=== PATIENT | male | born 1950 | race Caucasian/White ===

== ENCOUNTER 2019-12-21 08:55 | Outpatient (REF) | payer MEDICARE, MEDICAID, SELFPAY ==
--- NOTE | 2019-12-21 11:01 | MHC.AU.P13 ---
Hearing Instrument Fitting- Adult- Binaural Date of Visit: 12/21/19 Hearing Instruments Dispensed: Right Ear: Machine Bobbin Winder: Phonak Model: Audeo M70-R Serial Number: [id number] Warranty: 03/12/2023 Service Plan: 03/12/2023 Battery Size: Rechargeable Color: Sand Beige Art Teacher: 1M Type of Dome: Small Open Type of Wax Guard: CeruDisk Left Ear: Machine Bobbin Winder: Phonak Model: Audeo M70-R Serial Number: [id number] Warranty: 03/12/2023 Service Plan: 03/12/2023 Battery Size: Rechargeable Color: Sand Beige Art Teacher: 1M Type of Dome: Small Open Type of Wax Guard: CeruDisk Accessories/Assistive Technology: Summary of Fitting: Feedback manger was run. Verifit performed and levels adjusted to better reach targets. Target gain initially 100%. Patient felt his own voice was uncomfortably loud. Lowered gain to 90%. Occlusion compensation is medium. Patient reported improvement, though there was still a slight echo. Counseled that it is normal for a first time hearing aid user to perceive a slight echo or to find their voice louder than normal. With continued use, this perception should improve. Hearing aid care and use were discussed and practiced. Patient did not have his phone with him. Discussed how to pair to the phone, if he's interested, and demonstrated with his 's phone (did not actually pair instruments to his 's phone). Recommendations: Recommendations: A hearing instrument follow-up was scheduled. Please call our clinic with any questions or concerns. Diagnosis Code(s): Primary Diagnosis: H90.3 Bilateral Sensorineural Hearing Loss Services Performed: Hearing Instrument Services: BTE-Binaural- Level 3 Rechargable Add-On Hearing Aid Dispensing: Binaural Dispensing Fee Signature: Student/Clinical Fellow: No I have reviewed/agreed with student/fellow documentation: N/A Provider: Karl Castro CCC-A
== END 2019-12-21 08:56 | disposition home or self-care (01) ==
LOC: HO.HAP 08:55
PROVIDERS: Visit Provider Internal Medicine
DX: Z46.1 Encounter for fitting and adjustment of hearing aid (principal)
CPT/HCPCS: 92700; V5160; V5261

== ENCOUNTER 2020-01-11 07:53 | Outpatient (REF) | payer MEDICARE, MEDICAID, SELFPAY | END 2020-01-11 07:54 | disposition home or self-care (01) | LOC: HO.HAP 07:53 | PROVIDERS: PCP Internal Medicine; Referring Provider Internal Medicine; Visit Provider Internal Medicine | DX: Z46.1 Encounter for fitting and adjustment of hearing aid (principal) | CPT/HCPCS: 92700 ==

== ENCOUNTER 2021-01-24 08:41 | Outpatient (REF) | payer MEDICARE, MEDICAID, SELFPAY ==
--- NOTE | 2021-01-24 10:38 | MHC.AU.AHA ---
Adult Audiological Evaluation Date of Visit: 01/24/21 Reason for Appointment: History of hearing loss. Patient arrives today to determine if there has been a change in hearing. Since his last evaluation, patient experienced a significant flare of his Multiple Sclerosis, in which he was unable to use his legs. He required a stay in rehab, and continues to receive outpatient support. He is now able to walk with a cane. His right side is more heavily impacted by the MS. Previous Hearing Test Results: Performed at [facility] on 11/22/2019- Borderline/mild sloping to moderate sensorineural hearing loss bilaterally Ear History: Ear Deformity: None Reported Recent Ear Drainage: None Reported Recent Ear Pain: None Reported Family History of Hearing Loss?: Yes: Father Recent Ear Infections: None Reported Ear Infections in Childhood: None Reported History of Ear Wax Buildup: None Reported Previous Ear Surgery: None Reported Bothersome Tinnitus/Ringing/Noises in Ears: None Reported Ear used on the phone: Left Ear Blocked/Full Sensation in Ear(s): None Reported 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: No Medical History: Medical History: Multiple Sclerosis Hearing Instrument History- Right Ear: Tilt Tray Driver: Xplornet Model: canvs.coeo M70-R Serial Number: [id number] Battery Size: Rechargeable Repair Warranty: 03/12/2023 Loss and Damage Warranty: 03/12/2023 Service Plan: 03/12/2023 Dispensed By: [facility] Date of Fittin12/21/2019 Hearing Instrument History- Left Ear: Tilt Tray Driver: iMemoriesak Model: canvs.coeo M70-R Serial Number: [id number] Battery Size: Rechargeable Warranty: 03/12/2023 Loss and Damage Warranty: 03/12/2023 Service Plan: 03/12/2023 Dispensed By: [facility] Date of Fittin12/21/2019 Otoscopy: Right Ear: Unremarkable Left Ear: Unremarkable Tympanometry: Tympanometry performed due to: To assess integrity of the middle ear system Right Ear: Normal Middle Ear System (Type A) Left Ear: Normal Middle Ear System (Type A) Hearing Evaluation: Transducer(s) Used: Insert Earphones Method: Conventional Audiometry Stimuli Used: Pure Tones Right Ear: Description of Hearing: Borderline/mild to moderate sensorineural hearing loss Left Ear: Description of Hearing: Borderline/mild to moderate sensorineural hearing loss Speech Recognition Threshold (SRT): Method Used: Recorded Lists Stimuli Used: Spondee Words Right Ear: 30 dBHL Left Ear: 30 dBHL Word Discrimination: Method: Recorded Lists Word Lists Used: W-22 Right Ear: 96% at 70 dBHL Left Ear: 100% at 70 dBHL Most Comfortable Level (MCL): Right Ear: 70 dBHL Left Ear: 70 dBHL QuickSIN: Unaided (Binaurally at 70 dBHL): 1 dB SNR Loss, Aided (Soundfield at 45 dBHL): 0 dB SNR Loss Comparison: Compared to the most recent evaluation: Hearing is stable. Recommendations: Audiological re-evaluation in one year. See Hearing Aid Follow-Up note for more information. Diagnosis: Primary Diagnosis: H90.3 Bilateral Sensorineural Hearing Loss Signature: Provider: Karl Castro, CCC-A
--- NOTE | 2021-01-24 10:40 | MHC.AU.HFU ---
Hearing Instrument Follow-Up- Binaural Date of Visit: 01/24/21 Right Ear: Lock Master: Phonak Model: Audeo M70-R Serial Number: [id number] Repair Warranty: 03/12/2023 Loss and Damage Warranty: 03/12/2023 Service Plan: 03/12/2023 Battery Size: Rechargeable Color: Sand Beige Computer Numeric Control Setter: 1M Type of Dome: Medium Open Type of Wax Guard: CeruDisk Dispensed By: [facility] Date of Fittin12/21/2019 Left Ear: Lock Master: Phonak Model: Audeo M70-R Serial Number: [id number] Repair Warranty: 03/12/2023 Loss and Damage Warranty: 03/12/2023 Service Plan: 03/12/2023 Battery Size: Rechargeable Color: Sand Beige Computer Numeric Control Setter: 1M Type of Dome: Medium Open Type of Wax Guard: CeruDisk Dispensed By: [facility] Date of Fittin12/21/2019 Follow-Up Summary: Patient was seen for audiological evaluation (see separate report for details). Patient reports that overall the hearing aids have been great. Target software shows average of 13.5 hours of use each day. He does not feel any adjustments are needed to the hearing aid programming. No change was noted in the hearing today. Patient reports that he has been trying to use the [employer] kate, but it is not detecting the hearing aids. Upon trying to connect the hearing aids to the computer to check for software updates, it was noted that the buttons on both instruments were difficult to push, and had little spring to them. The right side would not turn off/on manually, and the left only did so after numerous attempts. They were placed in a stock etl lead to turn them off/on and it was noted that the light on the right hearing aid was not turning on. Patient reports that at home he has noticed that the light goes on, but it is very dim. Hearing aids were inspected. Microphones are clear. Wax guards and domes replaced. The hearing aids are still amplifying as expected. The hearing aids will be sent to [facility] [employer] for repair under warranty. The patient was given a loaner set of Networks in Motioneo M Trial 312T instruments ([id number], [id number]). When the repaired hearing aids come back in, we can help the patient re-pair them to his phone and kate. Recommendations: Patient will be contacted when materials have arrived. Patient's is also interested in having her hearing tested. She will be asking her PCP for an order. Ideally, when the patient's hearing aids arrive, they would like to have an appointment to picker box operator the hearing aids and for her audio on the same day. Diagnosis Code(s): Primary Diagnosis: H90.3 Bilateral Sensorineural Hearing Loss Signature: Provider: Karl Castro, CCC-A
== END 2021-01-24 08:42 | disposition home or self-care (01) ==
LOC: HO.SH 08:41
PROVIDERS: Visit Provider Internal Medicine
DX: H90.3 Sensorineural hearing loss, bilateral (principal)
CPT/HCPCS: 92557; 92567; 92593

== ENCOUNTER 2021-02-14 08:10 | Outpatient (REF) | payer MEDICARE, MEDICAID, SELFPAY | END 2021-02-14 08:11 | disposition home or self-care (01) | LOC: HO.HAP 08:10 | PROVIDERS: Visit Provider Internal Medicine | DX: Z13.89 Encounter for screening for other disorder (principal) ==

== ENCOUNTER 2021-03-14 07:53 | Outpatient (REF) | payer MEDICARE, MEDICAID, SELFPAY ==
--- NOTE | 2021-03-14 08:44 | MHC.AU.HFU ---
Hearing Instrument Follow-Up- Binaural Date of Visit: 03/14/21 Right Ear: Complex Care Nurse: Phonak Model: Audeo M70-R Serial Number: [id number] Repair Warranty: 03/12/2023 Loss and Damage Warranty: 03/12/2023 Service Plan: 03/12/2023 Battery Size: Rechargeable Color: Sand Beige Rn Private Duty: 1M Type of Dome: Medium Open Type of Wax Guard: CeruDisk Dispensed By: [facility] Date of Fittin12/21/2019 Left Ear: Complex Care Nurse: Phonak Model: Audeo M70-R Serial Number: [id number] Repair Warranty: 03/12/2023 Loss and Damage Warranty: 03/12/2023 Service Plan: 03/12/2023 Battery Size: Rechargeable Color: Sand Beige Rn Private Duty: 1M Type of Dome: Medium Open Type of Wax Guard: CeruDisk Dispensed By: [facility] Date of Fittin12/21/2019 Follow-Up Summary: Patient had previously called to say his hearing aids were no longer connecting to his phone. His reports that she tried to pair the hearing aids to the TV sound bar, and now they do not seem to work for any of the previously paired devices. Patient brought the hearing aids in today. In [employer], all pairings were deleted from the hearing aids. Was able to pair the hearing aids to the phone, and was able to connect the left hearing aid in the kate. The right hearing aid would not connect in the kate. Patient also reports that the right side has been intermittent in general, with the sound cutting out a few times a day. The right hearing aid was sent to [employer] for repair under warranty. Patient was provided a loaner (Armetheon [id number] #[id number]) with a size 1M junior engineer. A replacement 1M junior engineer was requested from [employer] for stock. Recommendations: Recommendations: Patient will be contacted when materials have arrived. Diagnosis Code(s): Primary Diagnosis: H90.3 Bilateral Sensorineural Hearing Loss Signature: Provider: Karl Castro, [facility]
== END 2021-03-14 07:54 | disposition home or self-care (01) ==
LOC: HO.HAP 07:53
PROVIDERS: Visit Provider Internal Medicine
DX: Z13.89 Encounter for screening for other disorder (principal)

== ENCOUNTER 2021-03-28 11:12 | Outpatient (REF) | payer MEDICARE, MEDICAID, SELFPAY | END 2021-03-28 11:13 | disposition home or self-care (01) | LOC: HO.HAP 11:12 | PROVIDERS: Visit Provider Internal Medicine | DX: Z13.89 Encounter for screening for other disorder (principal) ==

== ENCOUNTER 2021-04-18 08:25 | Outpatient (REF) | payer MEDICARE, MEDICAID, SELFPAY | END 2021-04-18 08:26 | disposition home or self-care (01) | LOC: HO.HAP 08:25 | PROVIDERS: Visit Provider Internal Medicine | DX: Z13.89 Encounter for screening for other disorder (principal) ==

== ENCOUNTER 2021-12-26 14:32 | Outpatient (REF) | payer MEDICARE, MEDICAID, SELFPAY | END 2021-12-26 14:33 | disposition home or self-care (01) | LOC: HO.HAP 14:32 | PROVIDERS: Visit Provider Internal Medicine | DX: Z46.1 Encounter for fitting and adjustment of hearing aid (principal); H90.3 Sensorineural hearing loss, bilateral | CPT/HCPCS: 92593; 92621 ==

== ENCOUNTER 2022-06-27 09:08 | Outpatient (REF) | payer MEDICARE, MEDICAID, SELFPAY ==
--- NOTE | 2022-06-27 11:38 | MHC.AU.HA3 ---
Hearing Instrument Follow-Up- Binaural Date of Visit: 06/27/22 Right Ear: Shaun, Model, Color, Serial Number: Narayan Singh M70-R #[id number] Band Instrument Repairer Repair Warranty: 03/12/2023 Band Instrument Repairer Loss and Damage Warranty: 03/12/2023 [facility] Service Plan: 03/12/2023 Battery Size: Rechargeable Boat Carpenter/Slim Tube: 1M Type of Wax Guard: CeruDisk Dispensed By: [facility] Date of Fittin12/21/2019 Left Ear: Shaun, Model, Color, Serial Number: Narayan Singh M70-R #[id number] Band Instrument Repairer Repair Warranty: 03/12/2023 Band Instrument Repairer Loss and Damage Warranty: 03/12/2023 [facility] Service Plan: 03/12/2023 Battery Size: Rechargeable Boat Carpenter/Slim Tube: 1M Type of Wax Guard: CeruDisk Dispensed By: [facility] Date of Fittin12/21/2019 Follow-Up Summary: Patient was seen for audiological re-evaluation (see separate report for details). He reports the button on the left instrument has not been working well, and he needs to press it hard in order to change the volume. He also reports that he got a new phone and requested assistance in pairing it. Both hearing aids were paired to his new phone and to the kate. Both hearing aids were inspected and maintenance performed. Wax guards and domes replaced. Microphones vacuumed. Both hearing aids are amplifying clearly. No programming changes made, as patient is happy with how they currently sound. The left button feels worn out. The left hearing aid was sent to [employer] for repair. He was provided with a loaner Phonak Audeo P90-R Trial ([id number]). The loaner is not paired to his phone, since it is a different model. Recommendations: Patient will be contacted when materials have arrived. Diagnosis Code(s): Primary Diagnosis: H90.3 Bilateral Sensorineural Hearing Loss Signature: Provider: Jerrod Castro, [facility]
== END 2022-06-27 09:09 | disposition home or self-care (01) ==
LOC: HO.SH 09:08
PROVIDERS: Visit Provider Internal Medicine
DX: Z01.118 Encounter for examination of ears and hearing with other abnormal findings (principal); Z46.1 Encounter for fitting and adjustment of hearing aid; H90.3 Sensorineural hearing loss, bilateral
CPT/HCPCS: 92557; 92567; 92593

== ENCOUNTER 2022-07-15 09:52 | Outpatient (REF) | payer MEDICARE, MEDICAID, SELFPAY ==
--- NOTE | 2022-07-15 12:00 | MHC.AU.HFU ---
Hearing Instrument Follow-Up- Binaural Date of Visit: 07/15/22 Right Ear: Narayan Cannono M70-R, #[id number], sander bebimal Repair Warranty: 03/12/2023 Loss and Damage Warranty: 03/12/2023 Service Plan: 03/12/2023 Battery Size: Rechargeable Foreign Languages Professor: 1M Type of Dome: Medium Open Type of Wax Guard: CeruShield Dispensed By: [facility] Date of Fittin12/21/2019 Left Ear: Narayan Cannono M70-R, #[id number], sand beige Repair Warranty: 03/12/2023 Loss and Damage Warranty: 03/12/2023 Service Plan: 03/12/2023 Battery Size: Rechargeable Foreign Languages Professor: 1M Type of Dome: Medium Open Type of Wax Guard: CeruShield Dispensed By: [facility] Date of Fittin12/21/2019 Follow-Up Summary: The patient was seen today to pick up operator his repaired LEFT hearing aid. He has been using a loaner left hearing aid with his existing right hearing aid. I went to pair the repaired left hearing aid with his existing right hearing aid, and unfortunately [facility] sent back the wrong serial number for the left aid. They sent back the same serial number as the right aid. The fitting software will not allow two of the same serial numbers to be programmed together. I spoke with [facility]iology and I will have to send back the left aid to [employer] to be replaced with the correct serial number. The patient will continue to use our loaner for the left ear until his left aid returns from repair. He will be contacted for an appointment once it arrives back in our clinic. He indicates understanding of the situation. Diagnosis Code(s): Primary Diagnosis: H90.3 Bilateral Sensorineural Hearing Loss Signature: Provider: Karl Mart, [facility]
== END 2022-07-15 09:53 | disposition home or self-care (01) ==
LOC: HO.HAP 09:52
PROVIDERS: Visit Provider Internal Medicine
DX: Z13.89 Encounter for screening for other disorder (principal)

== ENCOUNTER 2022-08-19 08:56 | Outpatient (REF) | payer MEDICARE, MEDICAID, SELFPAY | END 2022-08-19 08:57 | disposition home or self-care (01) | LOC: HO.HAP 08:56 | PROVIDERS: Visit Provider Internal Medicine | DX: Z13.89 Encounter for screening for other disorder (principal) ==

== ENCOUNTER 2023-12-15 14:21 | Outpatient (REF) | payer SELFPAY | END 2023-12-15 14:22 | disposition home or self-care (01) | LOC: HO.HAP 14:21 | PROVIDERS: Visit Provider Internal Medicine | DX: Z13.89 Encounter for screening for other disorder (principal) ==

== ENCOUNTER 2024-05-04 16:16 | Outpatient (REF) | payer MEDICARE, MEDICAID, SELFPAY ==
--- OUTSIDE RECORDS SUMMARY | 2024-05-04 16:18 | XMS_ITS | Encounter Summary ---
Author Organization [facility] Address [address] [place] [address] Care Team Providers Care Financial Analyst Accountant Name Role Phone Jonny Dejesus MD Primary Care Provider [phone] Encounter Details Date Type Department Care Team (Late st Contact Info) Description 12/21/2023 8:28 AM EDT Hospital Encounter TH HISTORIC ENCOUNTERS EASTERN CONVERSION ONLY Eda Bonds PA [address] [place] [address] [place] [address] Social History Tobacco Use Types Packs/Day Years Used Date Smoking Tobacco: Former Smokeless Tobacco: Never Alcohol Use Standard Drinks/Week Comments Yes 0 (1 standard drink = 0.6 oz pur e alcohol) Sex and Gender Information Value Date Recorded Sex Assigned at Not on file Legal Sex Male 4:59 PM EST Gender Identity Not on file Sexual Orientation Not on file documented as of this encounter Last Filed Vital Signs Vital Sign Reading Time Taken Comments Blood Pressure 144/82 12/21/2023 8:38 AM EDT Sitting Left arm Pulse 66 12/21/2023 8:38 AM EDT Temperature - - Respiratory Rate - - Oxygen Saturation - - Inhaled Oxygen Concentration - - Weight 77.9 kg (171 lb 12.8 oz) 07/02/2023 8:04 AM EDT Height 172.7 cm (5' 8 ) 07/02/2023 8:04 AM EDT Body Mass Index 26.12 07/02/2023 8:04 AM EDT documented in this encounter Progress Notes * MARY Ba - 12/21/2023 8:30 AM EDT Follow [facility] CC: MS HPI: Patient is a 73 y.o. year old male who presents for a follow up visit regarding ongoing management of multiple sclerosis. Disease Summary Date of onset/Initial symptom presentation: The Date of diagnosis of MS: Late Disease course at onset: Relapsing Current disease course: Last MS exacerbation: Previous disease therapies(reason for switch): Copaxone, Ocrevus Current disease therapy: Mayzent (since December 2018) Most recent MRI Brain: 11/2023 (stable) Most recent MRI Cervical spine: 11/2023 (stable cord lesions) Most recent MRI Thoracic spine: 12/2020 (stable cord lesions) CSF: JCV serology result and date: not performed MS mimickers: WBC 4.2, ALC 0.3 (05/21/22) Interval history Patient returns for follow up visit. He continues Mayzent (5 times per week) for disease-modifying therapy. He denies symptoms suggestive of demyelinating event since he was last seen in the office. Gait/balance remains stable. He has not had any recent falls (last fall September). He continues using rollator on a regular basis. He states that he tried Lexapro after last office visit but experienced sexual side effects and discontinued. His feels that mood is still down. They also note a cough that has been present over the last 2 months. He denies any known recent infections. Last visit history reviewed On 10/05 he had a controlled fall and he couldn't get up. His was able to help him get up. She recently completed a course of PT which he feels was helpful. His states that they are seeing the progression move to the L side of his body (previosuly wasmostly just R). He has been bothered by spasms LEs - can wake him during the night, disrupting sleep. He will get jerking movements of his legs that are not painful. Review of Systems Constitutional: Positive for fatigue. Genitourinary: Positive for urgency. Musculoskeletal: Positive for gait problem. Neurological: Positive for weakness. All other systems reviewed and are negative. Patient Active Problem List Diagnosis SNOMED CT(R) ??? Urinary urgency URGENT DESIRE TO URINATE ??? Spasticity SPASTICITY Current Outpatient Medications: ??? aspirin 81 MG chewable tablet, Chew 1 tablet (81 mg total) by mouth daily., Disp: , Rfl: ??? baclofen (LIORESAL) 20 MG tablet, TAKE 1 TABLET BY MOUTH FOUR TIMES A DAY, Disp: 360 tablet, Rfl: 1 ??? dalfampridine ER (AMPYRA) 10 MG 12 hr tablet, Take 1 tablet (10 mg total) by mouth every 12 (twelve) hours., Disp: 60 tablet, Rfl: 4 ??? ELDERBERRY PO, Take by mouth., Disp: , Rfl: ??? gabapentin (NEURONTIN) 600 MG tablet, TAKE 1 TABLET 3 TIMES A DAY, Disp: 90 tablet, Rfl: 5 ??? magnesium hydroxide (MILK OF MAGNESIA) 400 MG/5ML suspension, Take by mouth daily as needed forconstipation., Disp: , Rfl: ??? Mayzent 2 MG TABS, TAKE 1 TABLET BY MOUTH 1 TIME A DAY., Disp: 30 tablet, Rfl: 5 ??? metaxalone (SKELAXIN) 800 MG tablet, TAKE 1 TABLET DAILY, Disp: 90 tablet, Rfl: 3 ??? metoprolol tartrate (LOPRESSOR) 25 MG tablet, Take by mouth once., Disp: , Rfl: ??? MISC NATURAL PRODUCT OP, Take 28 mg by mouth., Disp: , Rfl: ??? Naltrexone HCl, Pain, 1.5 MG CAPS, TAKE ONE CAPSULE BY MOUTH ONCE DAILY AT BEDTIME FOR DAYS 1-30, THEN TWO CAPSULES AT BEDTIME FOR DAY 31-60, THEN THREE CAPSULES AT BEDTIME ON DAY 61-90, Disp: , Rfl: ??? oxybutynin (DITROPAN-XL) 10 MG 24 hr tablet, , Disp: , Rfl: ??? tiZANidine (ZANAFLEX) 2 MG tablet, Take 1 tablet (2 mg total) by mouth every 6 (six) hours as needed., Disp: 270 tablet, Rfl: 3 ??? vitamin B-12 (CYANOCOBALAMIN) 500 MCG tablet, Take 1 tablet (500 mcg total) by mouth daily., Disp: , Rfl: ??? vitamin C (ASCORBIC ACID) 250 MG tablet, Take 2 tablets (500 mg total) by mouth daily., Disp: ,Rfl: ??? vitamin D3 (VITAMIN D3) 25 MCG (1000 UT) tablet, Take 1 tablet (1,000 Units total) by mouth as needed., Disp: , Rfl: ??? buPROPion (WELLBUTRIN XL) 150 MG 24 hr tablet, Take 1 tablet (150 mg total) by mouth daily., Disp: 30 tablet, Rfl: 5 Neuro Exam BP 144/82 (BP Location: Left arm, Patient Position: Sitting) Pulse 66 Temp 97.5 ??F (36.4 ??C) (Temporal) There is no height or weight on file to calculate BMI. General: A&Ox3 Cranial Nerves: PERRL, EOMI without nystagmus, facial strength symmetric, no facial droop, tongue protrusion midline, speech clear, shoulder shrug symmetric . No red desaturation. Motor: strength 5/5 bilateral UE & LE. R hip flexion 4-/5, right hamstring 3-4/5 rt ankle dorsiflexion 1/5 Increased tone RLE Sensory: slight decreased sensation distally RUE Reflexes: 2+/4+ bilateral biceps, 2+/4+ bilateral patellar Cerebellar: FTN without dysmetria or ataxia bilaterally, decreased dexterity R hand, negative Rhomberg Gait: stiff, spastic gait, wearing right AFO and using cane. 25 foot walk: 9.6, 10.6 seconds (11.5, 10.7 seconds with rollator last visit) A/P: wellbutrin Decided against seeing rodstein /baclofen pump labs Multiple Sclerosis: Hussein Bear is a 73-year-old male with multiple sclerosis treated with Mayzent 5 days/week for disease modifying therapy. He continues to note slow gradual progression but prefers to continue with Mayzent at this time. A. Disease modifying therapy and diagnostic plan: -Continue Mayzent frequency 5 days/week -Orders given to check CBC (we are continuing to monitor ALC), LFTs, vitamin D and B12 levels - MRI brain and cervical spine with and without contrast will be ordered annually to assess for radiologic stability. He will review his recent stable MRI findings today. B. Symptomatic therapy plan: Mood changes: Lexapro was discontinued due to sexual side effects. After discussion of possible trial of Wellbutrin, which has lesser likelihood of sexual side effects, patient agrees to trial of Wellbutrin XL 150 mg daily. Gait impairment: He will continue use of right AFO and cane. Continue Ampyra, home exercises. Spasticity: He will continue current dose of baclofen Baclofen 10mg /10mg/30mg, tizanidine 1mg 1mg , 10mg night . Appointment with Dr. Hudson scheduled. Cognitive concerns: Neuropsych testing is scheduled for early March. Bladder/bowel dysfunction: Continue care with [facility] Neuropathic pain : Continue gabapentin 600 mg 3 times daily ?? Patient was encouraged to call the office with any questions or concerns. Follow up in 3 months or sooner as needed The patient and I discussed the clinical picture during today's appointment. Additional time was spent prior to the actual appointment reviewing records, lab values and imaging results and preparing documentation for today's visit. There was also time spent following the in person visit documenting, arranging for further diagnostic testing and follow-up appointments. The entire time spent in thisprocess was greater than discussed 40 minutes. The majority of the actual [id number] visit was spent counseling the patient with respect to the current neurological picture. Eda Bonds PA-C documented in this encounter Plan of Treatment Upcoming Encounters Date Type Department Care Team (Late st Contact Info) Description 06/16/2024 8:30 AM EDT Office Visit [facility] [address] [place] [address] Eda Bonds PA [address] [place] [address] [place] [address] documented as of this encounter Visit Diagnoses Not on filedocumented in this encounter Care Teams Financial Analyst Accountant Relationship Specialty Start Date End Date Jonny Dejesus MD PCP - General Internal Medicine 07/23/17 03/28/24 documented as of this encounter
--- OUTSIDE RECORDS SUMMARY | 2024-05-04 16:18 | XMS_ITS | Clinical Summary ---
Author Organization [facility] Address [address] [place] [address] Care Team Providers Care Document Advisor Name Role Phone Jonny Olivera MD Primary Care Provider [phone] Allergies No known active allergies Medications Medication Sig Dispensed Refills Start Date End Date Status oxybutynin (DITROPAN-XL) 10 MG 24 hr tablet 0 08/21/2019 Active aspirin 81 MG chewable tablet Chew 1 tablet (81 mg total) by mouth daily. 0 Active vitamin D3 (VITAMIN D3) 25 MCG (1000 UT) tablet Take 1 tablet (1,000 Units total) by mouth as needed. 0 Active MISC NATURAL PRODUCT OPIndications:IRON SUPPLEMENT Take 28 mg by mouth. 0 Active vitamin B-12 (CYANOCOBALAMIN) 500 MCG tablet Take 1 tablet (500 mcg total) by mouth daily. 0 Active ELDERBERRY PO Take by mouth. 0 Active metoprolol tartrate (LOPRESSOR) 25 MG tablet Take by mouth once. 0 Active vitamin C (ASCORBIC ACID) 250 MG tablet Take 2 tablets (500 mg total) by mouth daily. 0 Active Naltrexone HCl, Pain, 1.5 MG CAPS TAKE ONE CAPSULE BY MOUTH ONCE DAILY AT BEDTIME FOR DAYS 1-30, THEN TWO CAPSULES AT BEDTIME FOR DAY 31-60, THEN THREE CAPSULES AT BEDTIME ON DAY 61-90 0 08/15/2022 Active magnesium hydroxide (MILK OF MAGNESIA) 400 MG/5ML suspension Take by mouth daily as needed for constipation. 0 Active Mayzent 2 MG TABS TAKE 1 TABLET BY MOUTH 1 TIME A DAY. 30 tablet 5 04/09/2023 Active tiZANidine (ZANAFLEX) 2 MG tablet Take 1 tablet (2 mg total) by mouth every 6 (six) hours as needed. 270 tablet 3 04/22/2023 Active baclofen (LIORESAL) 20 MG tablet TAKE 1 TABLET BY MOUTH FOUR TIMES A DAY 360 tablet 1 10/12/2023 Active gabapentin (NEURONTIN) 600 MG tablet TAKE 1 TABLET 3 TIMES A DAY 90 tablet 5 12/06/2023 Active metaxalone (SKELAXIN) 800 MG tabletIndications:Mu ltiple sclerosis (HCC) TAKE 1 TABLET DAILY 90 tablet 3 12/18/2023 Active buPROPion (WELLBUTRIN XL) 150 MG 24 hr tablet Take 1 tablet (150 mg total) by mouth daily. 30 tablet 5 12/21/2023 Active dalfampridine ER (AMPYRA) 10 MG 12 hr tablet TAKE 1 TABLET BY MOUTH EVERY 12 HOURS 60 tablet 4 12/31/2023 Active Active Problems Problem Noted Date Diagnosed Date Urinary urgency 08/27/2019 Spasticity 08/27/2019 Family History Medical History Relation Name Comments Diabetes type II Father Heart disease Father Breast cancer Mother Multiple sclerosis Paternal Aunt Relation Name Status Comments Father Mother Paternal Aunt Social History Tobacco Use Types Packs/Day Years Used Date Smoking Tobacco: Former Smokeless Tobacco: Never Tobacco Cessation:Counseling Given: Not Answered Alcohol Use Standard Drinks/Week Comments Yes 0 (1 standard drink = 0.6 oz pur e alcohol) Education Answer Date Recorded What is the highest level of school you have completed or the highest degree you have received? High school graduate 06/27/2019 Sex and Gender Information Value Date Recorded Sex Assigned at Male 06/28/2021 7:52 AM EDT Gender Identity Not on file Sexual Orientation Not on file Job Start Date Occupation Industry Not on file Not on file Not on file Last Filed Vital Signs Vital Sign Reading Time Taken Comments Blood Pressure 144/82 12/21/2023 8:38 AM EDT Pulse 66 12/21/2023 8:38 AM EDT Temperature 36.4 ??C (97.5 ??F) 12/21/2023 8:38 AM ED T Respiratory Rate 16 06/19/2022 8:19 AM EDT Oxygen Saturation 95% 10/16/2023 9:01 AM EDT Inhaled Oxygen Concentration - - Weight 77.9 kg (171 lb 12.8 oz) 07/02/2023 8:04 AM EDT Height 172.7 cm (5' 8 ) 07/02/2023 8:04 AM EDT Body Mass Index 26.12 07/02/2023 8:04 AM EDT Plan of Treatment Health Maintenance Due Date Last Done Comments Hepatitis C Screening 1950 Depression Screening 1963 BMI Counseling 08/12/1969 Preventative Health Evaluation 08/12/1969 DTap / Tdap / Td (1 - Tdap) 08/12/1970 Colon Cancer Screening (Colonoscopy) 08/12/1996 Fall Risk Assessment 08/12/2016 Pneumococcal Vaccine (1 of 1 - PCV) 08/12/2016 Shingrix-Zoster Vaccine (2 o f 2) 05/27/2022 04/01/2022 COVID-19 Vaccine (3 - 2023-2 5 season) 2023 06/22/2020, 06/01/2020 Influenza Vaccine (#1) 2023 RSV Adult > 60+ Yrs or (1 - 1-dose 75+ series) 08/12/2026 Hepatitis B Vaccines Aged Out No long er eligible based on patient's age to complete this topic RSV Ped < 20 months Aged Out No longe r eligible based on patient's age to complete this topic Care Teams Document Advisor Relationship Specialty Start Date End Date Jonny Olivera MD [address] [place] [address] [place] [address] PCP - General Loan Associate 08/18/19
--- OUTSIDE RECORDS SUMMARY | 2024-05-04 16:18 | XMS_ITS | Clinical Summary ---
Author Organization [facility] Address [address] [place] [address] Phone Care Team Providers Care Assistant Womens Volleyball Coach Name Role Phone Jonny Dejesus MD Primary Care Provider [phone] Allergies No known active allergies Medications aspirin 81 mg chewable tablet Chew 1 tablet (81 mg total). Active baclofen (LIORESAL) 20 mg tablet Take 1 tablet (20 mg total) by mouth. 4 Active ELDERBERRY FRUIT ORAL Take by mouth. Acti ve gabapentin (NEURONTIN) 400 mg capsule Take 1 capsule (400 mg total) by mouth. Active magnesium hydroxide (MILK OF MAGNESIA) 400 mg/5 mL suspension Take by mouth. Acti ve metaxalone (SKELAXIN) 800 mg tablet Take 1 tablet (800 mg total) by mouth 1 (one) time each day. 3 Active metoprolol tartrate (LOPRESSOR) 25 mg tablet Take by mouth. Activ e naltrexone (Lotrexone) 1.5 mg capsule TAKE ONE CAPSULE BY MOUTH ONCE DAILY AT BEDTIME FOR DAYS 1-30, THEN TWO CAPSULES AT BEDTIME FOR DAY 31-60, THEN THREE CAPSULES AT BEDTIME ON DAY 61-90 3 Active oxyBUTYnin XL (DITROPAN-XL) 10 mg 24 hr tablet 0 Active cyanocobalamin (VITAMIN B-12) 500 mcg tablet Take 1 tablet (500 mcg total) by mouth. Active cholecalcifero l (VITAMIN D-3) 25 mcg (1,000 unit) tablet Take 1 tablet (1,000 Units total) by mouth. Active ascorbic acid (VITAMIN C) 250 mg tablet Take 2 tablets (500 mg total) by mouth. Active NON FORMULARY Take 28 mg by mouth. IRON SUPPLEMENT Active rOPINIRole (REQUIP) 0.25 mg tablet Take 1 tablet (0.25 mg total) by mouth at bedtime. Take 3 tabs at bedtime Active tiZANidine (ZANAFLEX) 2 mg tablet TAKE 1 TABLET EVERY 6 HOURSAS NEEDED 270 tablet 3 4 Active siponimod (Mayzent) 2 mg tablet Take 1 tablet by mouth 1 (one) time each day. 30 tablet 5 5 05/04/19 25 Active dalfampridine 10 mg tablet extended release 12 hr TAKE 1 TABLET BY MOUTH EVERY 12 HOURS 60 tablet 4 5 Active dalfampridine 10 mg tablet extended release 12 hr msot 60 tablet 4 5 Active tiZANidine (ZANAFLEX) 2 mg capsule Take 1 capsule (2 mg total) by mouth. 04/21/19 25 Discontinu ed(Therapy completed) ciclopirox (PENLAC) 8 % solution apply medication to top of nail daily for 48 weeks. 8 04/21/19 25 Discontinu ed(Therapy completed) ocrelizumab (Ocrevus) 30 mg/mL solution injection Inject into the vein Every 6 Months. 04/21/19 25 Discontinu ed(Therapy completed) Active Problems Problem Noted Date Diagnosed Date Spasticity 08/27/2019 Urinary urgency 08/27/2019 Multiple sclerosis 08/21/2017 Right foot drop 08/21/2017 Encounters Date Type Department Care Team Description 04/21/2024 8:00 AM EST Office Visit [facility] [place] [address] [place] [address] Terry Rodrigues MD Multiple sclerosis (CMS/HCC) (Primary Dx); Gait abnormality; Spasticity; Urinary urgency from Last 3 Months Immunizations Name Administration Dates Next Due Influenza Quadravalent, 0.5m l (Fluad) 65yo and older 12/25/2022,12/15/2020,01/09/2020 Influenza Quadravalent, 0.5m l (Fluzone High-dose) 65yo and older 02/15/2019,02/02/2018,01/14/2017 Pfizer SARS-CoV-2 COVID-19, mRNA, LNP-S, preservative free 06/22/2020,06/01/2020 Pneumococcal polysaccharide 23 valent (Pneumovax 23) 2yo and older 01/14/2017 Tdap Tetanus diptheria acell ular pertussis (Boostrix; Adacel) 7yo and older 07/01/2018 Medical History Medical History Date Comments Multiple sclerosis ([facility]) 08/21/2017 DX: Multiple sclerosis ([facility]) Right foot drop 08/21/2017 DX:Right foot dr op Cervical dystonia DX:Cervical dy stonia Periodic limb movement disorder DX:Periodic limb movement disorder Spastic hemiparesis affectin g dominant side ([facility]) DX:Spastic hemiparesis affec ting dominant side ([facility]) Vitamin B12 deficiency DX:Vitami n B12 deficiency Vitamin D deficiency DX:Vitamin D deficiency MS (multiple sclerosis) ([facility]) DX:MS (multiple sclerosis) ([facility]) Family History Medical History Relation Name Comments Diabetes type II Father Heart disease Father Multiple sclerosis Father's Sister Breast cancer Mother Relation Name Status Comments Father Father's Sister Mother Social History Tobacco Use Types Packs/Day Years [...] on file Sexual Orientation Not on file Obstetrics History Last Filed Vital Signs Vital Sign Reading Time Taken Comments Blood Pressure 148/90 04/21/2024 8:10 AM EST Pulse 53 04/21/2024 8:10 AM EST Temperature 36.6 ??C (97.9 ??F) 04/21/2024 8:10 AM ES T Respiratory Rate - - Oxygen Saturation 98% 04/21/2024 8:10 AM EST Inhaled Oxygen Concentration - - Weight 78 kg (172 lb) 04/21/2024 8:10 AM EST Height 172.7 cm (5' 8 ) 04/21/2024 8:10 AM EST Body Mass Index 26.15 04/21/2024 8:10 AM EST Plan of Treatment Upcoming Encounters Date Type Department Care Team (Late st Contact Info) Description 06/16/2024 8:30 AM EDT Office Visit [facility] - [place] [address] [place] [address] Eda Bonds, MARY [address] [facility] [place] [address] Health Maintenance Due Date Last Done Comments Abdominal Aortic Aneurysm (AAA) Screen 02/21/2022 Cholesterol Screening (Lipid Panel) 02/21/2022 Colorectal Cancer Screening: Colonoscopy 02/21/2022 Depression Screening 02/21/2022 Falls Risk Assessment 02/21/2022 Hepatitis C Screening 02/21/2022 Social Influencers of Health Screening 02/21/2022 Medicare Annual Wellness Visit 03/25/2023 03/25/2022 COVID-19 Vaccine ( season) 2023 01/19/2021, 06/22/2020, 06/01/2020 Influenza Vaccine (#1) 2023 , 12/15/2021, 12/15/2020, Additional history exists RSV Immunization Patients 60+ Years Old (1 - 1-dose 75+ series) 08/12/2026 DTaP,Tdap,and Td Vaccines (3 - Td or Tdap) 09/24/2032 09/24/2022, 07/01/2018, 07/01/2018 Zoster Vaccines Completed 09/24/2022, 04/01/2022 Pneumococcal Vaccine: 50+ Years Completed 04/15/2024, 01/14/2017 HIB Vaccines Aged Out No longer eligi ble based on patient's age to complete this topic HPV Vaccines Aged Out No longer eligi ble based on patient's age to complete this topic Hepatitis A Vaccines Aged Out No long er eligible based on patient's age to complete this topic Hepatitis B Vaccines Aged Out No long er eligible based on patient's age to complete this topic IPV Vaccines Aged Out No longer eligi ble based on patient's age to complete this topic MMR Vaccines Aged Out No longer eligi ble based on patient's age to complete this topic Meningococcal ACWY Vaccine Aged Out N o longer eligible based on patient's age to complete this topic Meningococcal B Vacine Aged Out No lo nger eligible based on patient's age to complete this topic RSV Immunization Patients Under 20 months Aged Out No longer eligible based on patient's age to complete this topic Varicella Vaccines Aged Out No longer eligible based on patient's age to complete this topic Insurance MEDICARE [place]ICAID - [place] Advance Directives Documents on File Type Date Recorded 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 Health Care Decision (hx) 01/19/2021 AD CONTRERAS DIRECTIVE Health Care Decision (hx) 01/19/2021 AD CONTRERAS DIRECTIVE Health Care Decision (hx) 01/19/2021 AD CONTRERAS DIRECTIVE Health Care Decision (hx) 01/19/2021 AD CONTRERAS DIRECTIVE Health Care Decision (hx) 01/19/2021 AD CONTRERAS DIRECTIVE Health Care Decision (hx) 01/19/2021 AD CONTRERAS DIRECTIVE Health Care Decision (hx) 01/19/2021 AD CONTRERAS DIRECTIVE Health Care Decision (hx) 12/27/2020 AD CONTRERAS DIRECTIVE Health Care Decision (hx) 12/27/2020 AD CONTRERAS DIRECTIVE Health Care Decision (hx) 12/27/2020 AD CONTRERAS DIRECTIVE Health Care Decision (hx) 12/27/2020 AD CONTRERAS DIRECTIVE Health Care Decision (hx) 12/27/2020 AD CONTRERAS DIRECTIVE Health Care Decision (hx) 12/27/2020 AD CONTRERAS DIRECTIVE Health Care Decision (hx) 12/27/2020 AD CONTRERAS DIRECTIVE Health Care Decision (hx) 12/27/2020 AD CONTRERAS DIRECTIVE Health Care Decision (hx) 12/27/2020 AD CONTRERAS DIRECTIVE Health Care Decision (hx) 12/26/2020 AD CONTRERAS DIRECTIVE Health Care Decision (hx) 12/26/2020 AD CONTRERAS DIRECTIVE Health Care Decision (hx) 12/26/2020 AD CONTRERAS DIRECTIVE Health Care Decision (hx) 12/26/2020 AD CONTRERAS DIRECTIVE Health Care Decision (hx) 12/26/2020 AD CONTRERAS DIRECTIVE Health Care Decision (hx) 12/26/2020 AD CONTRERAS DIRECTIVE Health Care Decision (hx) 12/26/2020 AD CONTRERAS DIRECTIVE Health Care Decision (hx) 12/26/2020 AD CONTRERAS DIRECTIVE Health Care Decision (hx) 12/26/2020 AD CONTRERAS DIRECTIVE Care Teams Assistant Womens Volleyball Coach Relationship Specialty Start Date End Date Jonny Dejesus MD [address] [place] [address] PCP - General Internal Medicine 03/29/24
--- OUTSIDE RECORDS SUMMARY | 2024-05-04 16:18 | XMS_ITS | Encounter Summary ---
Author Organization [facility] Address [address] [place] [address] Care Team Providers Care Traffic Maintenance Supervisor Name Role Phone Jonny Dejesus MD Primary Care Provider [phone] Reason for Referral * Consultation (Routine) - Authorized Specialty Diagnoses / Procedures Referred By Bertha hummel Referred To Contact Physical Therapy Diagnoses Multiple sclerosis (CMS/HCC) Gait abnormality Terry Rodrigues MD [address] [address] Phone: tel: fax: Referral ID Status Reason Start Date Expiration Date Visits Requested Visits Authorized [id number] Authorized Specialty Services Required 04/21/2024 04/21/2025 1 1 * Consultation (Routine) - Authorized Specialty Diagnoses / Procedures Referred By Bertha hummel Referred To Contact Occupational Therapy Diagnoses Multiple sclerosis (CMS/HCC) Gait abnormality Terry Rodrigues MD [address] [address] Phone: tel: fax: Referral ID Status Reason Start Date Expiration Date Visits Requested Visits Authorized [id number] Authorized Specialty Services Required 04/21/2024 04/21/2025 1 1 Encounter Details Date Type Department Care Team (Late st Contact Info) Description 04/21/2024 8:00 AM EST Office Visit [facility] [address] [place] [address] Terry Rodrigues MD [address] [place] [id number] Multiple sclerosis (CMS/HCC) (Primary Dx); Gait abnormality; Spasticity; Urinary urgency Social History Tobacco Use Types Packs/Day Years [...] Mass Index 26.15 04/21/2024 8:10 AM EST documented in this encounter Progress Notes * Terry Rodrigues MD - 04/21/2024 8:00 AM EST C: MS HPI: Patient is a 73 y.o. [...] 4.2, ALC 0.3 (05/21/22) Interval history Patient is here for follow up No new neurological symptom concerning for demyelination since last visit Patient still on Mayzent tolerating it well , he did get recent labs by his primary care he admitted to hospital he admits it was viral including our screening lab will obtain labs and do necessary labs Since last visit he was evaluated by Dr Charles and some adjustments were done to his medication management increased his baclofen and tizanidine for spasticity Patient have experienced 2 falls since last visit no serious injury in april 04 he had a soft fall , no injuries backwards , in January he was cleaning litter box we discussed prolonged fall precautions we will refer patient to physical therapy and Occupational Therapy Urinary and bowel symptoms have been stable. Oxybutynin He still on gabapentin 600 mg twice a day neuropathic pain prolonged discussion about what type of pain gabapentin is targeting patient want to continue medication adherence has been addressing the pain Patient did have a neuropsych evaluation with quick review of the report he was diagnosed with mildcognitive impairment there was some recommendation that we really discussed including psychotherapy/group therapy Patient denies any recent illness or infection Patient have not started the Wellbutrin he was concerned about some side effects listed he admits his mood is stable his address some concerns we gave resources for some psychotherapy Last visit history Patient returns for follow up visit. [...] months. He denies any known recent infections. Review of Systems Constitutional: Positive for fatigue. Genitourinary: Positive for urgency. Musculoskeletal: Positive for gait problem. Neurological: Positive for weakness. All other systems reviewed and are negative. Patient Active Problem List Diagnosis SNOMED CT(R) Urinary urgency URGENT DESIRE TO URINATE Spasticity SPASTICITY Current Outpatient Medications: Current Outpatient Medications on File Prior to Visit Medication Sig Dispense Refill ascorbic acid (VITAMIN C) 250 mg tablet Take 2 tablets (500 mg total) by mouth. aspirin 81 mg chewable tablet Chew 1 tablet (81 mg total). baclofen (LIORESAL) 20 mg tablet Take 1 tablet (20 mg total) by mouth. cholecalciferol (VITAMIN D-3) 25 mcg (1,000 unit) tablet Take 1 tablet (1,000 Units total) by mouth. ciclopirox (PENLAC) 8 % solution apply medication to top of nail daily for 48 weeks. (Patient not taking: Reported on 04/21/2024) cyanocobalamin (VITAMIN B-12) 500 mcg tablet Take 1 tablet (500 mcg total) by mouth. ELDERBERRY FRUIT ORAL Take by mouth. gabapentin (NEURONTIN) 400 mg capsule Take 1 capsule (400 mg total) by mouth. magnesium hydroxide (MILK OF MAGNESIA) 400 mg/5 mL suspension Take by mouth. metaxalone (SKELAXIN) 800 mg tablet Take 1 tablet (800 mg total) by mouth 1 (one) time each day. metoprolol tartrate (LOPRESSOR) 25 mg tablet Take by mouth. naltrexone (Lotrexone) 1.5 mg capsule TAKE ONE CAPSULE BY MOUTH ONCE DAILY AT BEDTIME FOR DAYS 1-30, THEN TWO CAPSULES AT BEDTIME FOR DAY 31-60, THEN THREE CAPSULES AT BEDTIME ON DAY 61-90 NON FORMULARY Take 28 mg by mouth. IRON SUPPLEMENT ocrelizumab (Ocrevus) 30 mg/mL solution injection Inject into the vein Every 6 Months. (Patient nottaking: Reported on 04/21/2024) oxyBUTYnin XL (DITROPAN-XL) 10 mg 24 hr tablet rOPINIRole (REQUIP) 0.25 mg tablet Take 1 tablet (0.25 mg total) by mouth at bedtime. Take 3 tabs at bedtime siponimod (Mayzent) 2 mg tablet Take 1 tablet by mouth 1 (one) time each day. 30 tablet 5 tiZANidine (ZANAFLEX) 2 mg capsule Take 1 capsule (2 mg total) by mouth. (Patient not taking: Reported on 04/21/2024) tiZANidine (ZANAFLEX) 2 mg tablet TAKE 1 TABLET EVERY 6 HOURSAS NEEDED 270 tablet 3 [DISCONTINUED] dalfampridine 10 mg tablet extended release 12 hr Msot 60 tablet 4 No current facility-administered medications on file prior to visit. Neuro Exam Vitals: 04/21/24 0810 BP: (!) 148/90 Pulse: 53 Temp: 36.6 ??C (97.9 ??F) SpO2: 98% General: A&Ox3 Cranial Nerves: PERRL, EOMI without [...] diagnostic plan: -Continue Mayzent frequency 5 days/week -will obtain labs is done with PCP given to check CBC (we are continuing to monitor ALC), LFTs, vitamin D and B12 levels - MRI brain and cervical spine with and without contrast will be ordered annually to assess for radiologic stability. B. Symptomatic therapy plan: Mood changes: Lexapro was discontinued due to sexual side effects. Last visit after discussion of possible trial of Wellbutrin, patient held off we discussed psychotherapy as a resource. Provided patient with some resources Gait impairment: He will continue use of right AFO and cane. Continue Ampyra, will refer to outpatient PT Spasticity: He hide follow-up with Dr. Charles with increased Baclofen 15mg /15mg/30mg, tizanidine 2mg 2mg , 10mg night . He denies any side effects Cognitive concerns: Neuropsych testing showed mild cognitive impairment we did not have the detailed report to be discussed thoroughly next visit will consider starting memantine versus Aricept to see if it helped with the memory Bladder/bowel dysfunction: Continue care with [facility] RLS : requip Neuropathic pain : Continue gabapentin 600 mg 3 times daily Patient was encouraged to call the office with any questions or concerns. Follow up in 2 months or sooner as needed The patient [...] spent in thisprocess was greater than discussed 60 minutes. The majority of the actual [id number] visit was spent counseling the patient with respect to the current neurological picture. MD Terry Archibald MD documented in this encounter Plan of Treatment Upcoming Encounters Date Type Department Care Team (Late st Contact Info) Description 06/16/2024 8:30 AM EDT Office Visit [facility] [address] [facility] [address] [place] [address] Eda Bonds, [place] [address] [facility] [place] [address] Scheduled Referrals Name Type Priority Associated Diagnoses Order Schedule Ambulatory referral to Occupational Therapy Outpatient Referral Routine Multiple sclerosis ([facility]) Gait abnormality 1 Occurrences starting 04/21/2024 until 04/21/2025 Ambulatory referral to Physical Therapy and Athletic Training Outpatient Referral Routine Multiple sclerosis ([facility]/HCC) Gait abnormality 1 Occurrences starting 04/21/2024 until 04/21/2025 documented as of this encounter Visit Diagnoses Diagnosis Multiple sclerosis (CMS/HCC)- Primary Multiple sclerosis Gait abnormality Abnormality of gait Spasticity Abnormal involuntary movements Urinary urgency Urgency of urination documented in this encounter Discontinued Medications Medication Sig Discontinue Reason Start Date End Da te ciclopirox (PENLAC) 8 % solution apply medication to top of nail daily for 48 weeks. Therapy completed 08/21/2017 04/21/2024 ocrelizumab (Ocrevus) 30 mg/mL solution injection Inject into the vein Every 6 Months. Therapy completed 04/21/2024 tiZANidine (ZANAFLEX) 2 mg capsule Take 1 capsule (2 mg total) by mouth. Therapy completed 04/21/2024 documented as of this encounter Care Teams Traffic Maintenance Supervisor Relationship Specialty Start Date End Date Jonny Dejesus MD [address] [place] [id number] PCP - General Internal Medicine 03/29/24 documented as of this encounter
--- NOTE | 2024-05-05 10:21 | MHC.AU.HA3 ---
Hearing Instrument Follow-Up- Binaural Date of Visit: 05/05/24 Right Ear: Shaun, , Color, Serial Number: Narayan Singh [id number] SN: [id number] Color: Madison beige Histotechnician Repair Warranty: 03/12/2023 Histotechnician Loss and Damage Warranty: 03/12/2023 [facility] Service Plan: 03/12/2023 Battery Size: Rechargeable Medication Coordinator/Slim Tube: 1M Earmold/Dome/CShell/SlimTip:Medium open dome (no retention tail) Type of Wax Guard: CeruShield Dispensed By: [facility] Date of Fittin12/21/2019 Left Ear: Shaun, , Color, Serial Number: Narayan Singh [id number] SN: [id number] Color: Sand beige Histotechnician Repair Warranty: 03/12/2023 Histotechnician Loss and Damage Warranty: 03/12/2023 [facility] Service Plan: 03/12/2023 Battery Size: Rechargeable Medication Coordinator/Slim Tube: 1M Earmold/Dome/CShell/SlimTip: Medium open dome (no retention tail) Type of Wax Guard: CeruShield Dispensed By: [facility] Date of Fittin12/21/2019 Follow-Up Summary: Right MANUEL dropped off 05/04/2024 reporting MNAUEL . Assessed on 05/05/2024. Dome/wax guard occluded, mics clogged, battery. Cleaned MANUEL. Replaced dome and wax guard. Vacuumed and brushed microphone. Charged in office. Listening check demonstrated MANUEL amplifying clearly. Recommendations: Hearing instrument follow-up or maintenance as needed. Please contact our clinic with any questions or concerns. Diagnosis Code(s): Primary Diagnosis: H90.3 Bilateral Sensorineural Hearing Loss Signature: Provider: Jerrod Gale, [facility]
== END 2024-05-04 16:17 | disposition home or self-care (01) ==
LOC: HO.HAP 16:16
PROVIDERS: Visit Provider Internal Medicine
DX: Z13.89 Encounter for screening for other disorder (principal)

== ENCOUNTER 2024-05-06 15:13 | Outpatient (REF) | payer MEDICARE, MEDICAID, SELFPAY ==
--- OUTSIDE RECORDS SUMMARY | 2024-05-06 15:16 | XMS_ITS | Encounter Summary ---
[facility] Address [address] [place] [address] Care Team Providers Care Forensic Audit Expert Name Role Phone Jonny Dejesus MD Primary Care Provider [phone] Reason for Visit * Reason Comments Leg Injury LEFT LEG PAIN BY EMS Encounter Details Date Type Department Care Team (Late st Contact Info) Description 05/05/2024 12:16 PM EST - 05/05/2024 3:19 PM EST Emergency [facility] Emergency [address] [place] [id number] Yoel Gilliam MD [address] [place] [address] Pain (Primary Dx); Pain of left lower extremity Discharge Disposition: Home or Self Care Social History Tobacco Use Types Packs/Day Years [...] Sign Reading Time Taken Comments Blood Pressure 140/77 05/05/2024 3:18 PM EST Pulse 49 05/05/2024 3:18 PM EST Temperature 36.3 ??C (97.4 ??F) 05/05/2024 12:[address] Respiratory Rate 18 05/05/2024 3:18 PM EST Oxygen Saturation 98% 05/05/2024 3:18 PM EST Inhaled Oxygen Concentration - - Weight 77.1 kg (170 lb) 05/05/2024 8:44 AM EST Height 172.7 cm (5' 8 ) 05/05/2024 8:44 AM EST Body Mass Index 25.85 05/05/2024 8:44 AM EST documented in this encounter Discharge Instructions * Discharge Instructions* MARY Kirk - 05/05/2024 2:23 PM EST Been seen today for leg pain unfortunately is not entirely clear what is causing her pain symptoms.Your x-ray did show some degenerative changes (arthritis) but your pain appears to be more in the posterior aspect of your knee and this would be inconsistent with arthritic type pain. Please take muscle relaxants as prescribed can make you sleepy do not drive or operate machinery while using them please follow-up with your primary care soon as possible for further eval as well as your neurologist please return to the emergency department should you have any other worsening symptoms or new symptoms he feels though warrant emergent medical attention. * Attachments The following attachments cannot be sent through Care Everywhere. * Leg Pain (Bahraini) documented in this encounter Medications at Time of Discharge ascorbic acid (VITAMIN C) 250 mg tablet Take 2 tablets (500 mg total) by mouth. aspirin 81 mg chewable tablet Chew 1 tablet (81 mg total). baclofen (LIORESAL) 20 mg tablet Take 1 tablet (20 mg total) by mouth. 04/24/2023 cholecalciferol (VITAMIN D-3) 25 mcg (1,000 unit) tablet Take 1 tablet (1,000 Units total) by mouth. cyanocobalamin (VITAMIN B-12) 500 mcg tablet Take 1 tablet (500 mcg total) by mouth. dalfampridine 10 mg tablet extended release 12 hr TAKE 1 TABLET BY MOUTH EVERY 12 HOURS 60 tablet 4 04/29/2024 dalfampridine 10 mg tablet extended release 12 hr msot 60 tablet 4 04/29/2024 ELDERBERRY FRUIT ORAL Take by mouth. gabapentin (NEURONTIN) 400 mg capsule Take 1 capsule (400 mg total) by mouth. magnesium hydroxide (MILK OF MAGNESIA) 400 mg/5 mL suspension Take by mouth. metaxalone (SKELAXIN) 800 mg tablet Take 1 tablet (800 mg total) by mouth 1 (one) time each day. 12/15/2022 methocarbamoL (ROBAXIN) 750 mg tablet Take 1 tablet (750 mg total) by mouth 4 (four) times a day for 10 days. 40 each 05/05/2024 metoprolol tartrate (LOPRESSOR) 25 mg tablet Take by mouth. naltrexone (Lotrexone) 1.5 mg capsule TAKE ONE CAPSULE BY MOUTH ONCE DAILY AT BEDTIME FOR DAYS 1-30, THEN TWO CAPSULES AT BEDTIME FOR DAY 31-60, THEN THREE CAPSULES AT BEDTIME ON DAY 61-90 08/15/2022 NON FORMULARY Take 28 mg by mouth. IRON SUPPLEMENT oxyBUTYnin XL (DITROPAN-XL) 10 mg 24 hr tablet 08/21/2019 rOPINIRole (REQUIP) 0.25 mg tablet Take 1 tablet (0.25 mg total) by mouth at bedtime. Take 3 tabs at bedtime tiZANidine (ZANAFLEX) 2 mg tablet TAKE 1 TABLET EVERY 6 HOURSAS NEEDED 270 tablet 3 03/14/2024 documented as of this encounter Ordered Prescriptions Prescription Sig Dispense Quantity Refills Last Filled Start Date End Date methocarbamoL (ROBAXIN) 750 mg tablet Take 1 tablet (750 mg total) by mouth 4 (four) times a day for 10 days. 40 each 05/05/2024 05/15/2024 documented in this encounter Discharge Disposition Disposition Code Departure Means Destination Comment s Home or Self Care documented in this encounter Progress Notes * Amberly Donato RN - 05/05/2024 8:34 AM EST PT TO ED BY EMS WITH LEFT LEG PAIN AND SWELLING SINCE THURSDAY. EMS STATES WARMTH TO LEG WELL. documented in this encounter Plan of Treatment Upcoming Encounters Date Type Department Care Team (Late st Contact Info) Description 05/10/2024 3:00 PM EST Office Visit [address] [place] [address] Terry Rodrigues MD [address] [place] [phone] 06/16/2024 8:30 AM EDT Office Visit [facility] [place] [address] [place] [phone] Eda Bonds, MARY [address] [facility] [place] [id number] documented as of this encounter Procedures Procedure Name Priority Date/Time Associated Diagnosis Comments XR KNEE 4+ VIEWS LEFT STAT 05/05/2024 1:38 PM EST CBC WITH AUTO DIFFERENTIAL STAT 05/05/2024 12:58 PM EST CBC AND DIFFERENTIAL STAT 05/05/2024 12:58 PM EST BASIC METABOLIC PANEL STAT 05/05/2024 12:58 PM EST VAS US DUPLEX LOWER EXT VENOUS LEFT Routine 05/05/2024 10:06 AM EST Pain documented in this encounter Results * XR Knee 4+ Views Left (05/05/2024 1:38 PM EST) Anatomical Region Laterality Modality Lower Extremities, Knee Left Radiogra phic Imaging 05/05/2024 2:01 PM EST Impressions 05/05/2024 2:02 PM EST FINDINGS/IMPRESSION: Degenerative changes most prominent in medial and patellofemoral compartments. ??No acute fracture. ??Normal alignment. ??Osteopenia. ??No significant joint effusion. ??Prepatellar soft tissue swelling. -------- FINAL REPORT -------- Dictated By: Joan Avila Dictated Date: 05/05/2024 14:01 ET Assigned Physician: Joan Avila Reviewed and Electronically Signed By: Joan Avila Signed Date: 05/05/2024 14:02 ET Workstation ID: [id number] Transcribed By: Self Edit Transcribed Date: 05/05/2024 14:01 ET Narrative 05/05/2024 2:02 PM EST XR KNEE 4+ VIEWS LEFT INDICATION: pain TECHNIQUE: XR KNEE 4+ VIEWS LEFT COMPARISON: No priors available. Procedure Note Joan Avila MD - 05/05/2024 XR KNEE 4+ VIEWS LEFT INDICATION: pain TECHNIQUE: XR KNEE 4+ VIEWS LEFT COMPARISON: No priors available. IMPRESSION: FINDINGS/IMPRESSION: Degenerative changes most prominent in medial andpatellofemoral compartments. No acute fracture. Normal alignment.Osteopenia. No significant joint effusion. Prepatellar soft tissueswelling. -------- FINAL REPORT -------- Dictated By: Joan Avila Dictated Date: 05/05/2024 14:01 ET Assigned Physician: Joan Avila Reviewed and Electronically Signed By: Joan Avila Signed Date: 05/05/2024 14:02 ET Workstation ID: [id number] Transcribed By: Self Edit Transcribed Date: 05/05/2024 14:01 ET Sin HERNANDEZ IMG XR PROCEDURES Final Resul t * (ABNORMAL) CBC auto differential (05/05/2024 12:58 PM EST) WBC 4.4(L) 4.8 - 10.8 K/mcL LAB HEMETOLOGY METHOD 05/05/2024 1:24 PM [facility] RBC 4.20(L) 4.50 - 5.50 M/mcL LAB HEMETOLOGY METHOD 05/05/2024 1:24 PM [facility] Hemoglobin 13.7 13.5 - 17.5 g/dL LAB HEMETOLOGY METHOD 05/05/2024 1:24 PM [facility] Hematocrit 39.9(L) 42.0 - 54.0 % LAB HEMETOLOGY METHOD 05/05/2024 1:24 PM [facility] MCV 95.9 79.0 - 98.0 FL LAB HEMETOLOGY METHOD 05/05/2024 1:24 PM [facility] MCH 32.9(H) 27.0 - 32.0 pcg LAB HEMETOLOGY METHOD 05/05/2024 1:24 PM [facility] MCHC 34.3 32.0 - 37.0 g/dL LAB HEMETOLOGY METHOD 05/05/2024 1:24 PM [facility] RDW 13.2 11.0 - 15.0 % LAB HEMETOLOGY METHOD 05/05/2024 1:24 PM [facility] Platelets 178 130 - 400 K/mcL LAB HEMETOLOGY METHOD 05/05/2024 1:24 PM [facility] MPV 10.5 7.0 - 11.0 FL LAB HEMETOLOGY METHOD 05/05/2024 1:24 PM [facility] NRBC 0.0 <1.0 % LAB HEMETOLOGY METHOD 05/05/2024 1:24 PM [facility] NRBC Absolute 0.00 <0.10 K/mcL LAB HEMETOLOGY METHOD 05/05/2024 1:24 PM [facility] Neutrophils Relative 76.5 % LAB HEMETOLOGY METHOD 05/05/2024 1:24 PM [facility] Lymphocytes Relative 5.9 % LAB HEMETOLOGY METHOD 05/05/2024 1:24 PM [facility] Monocytes Relative 14.9 % LAB HEMETOLOGY METHOD 05/05/2024 1:24 PM [facility] Eosinophils Relative 2.5 % LAB HEMETOLOGY METHOD 05/05/2024 1:24 PM [facility] Basophils Relative 0.2 % LAB HEMETOLOGY METHOD 05/05/2024 1:24 PM [facility] Immature Granulocytes Relative 0.0 % LAB HEMETOLOGY METHOD 05/05/2024 1:24 PM [facility] Neutrophils Absolute 3.34 1.50 - 7.00 K/mcL LAB HEMETOLOGY METHOD 05/05/2024 1:24 PM EST [facility] Lymphocytes Absolute 0.26(L) 1.00 - 5.00 K/mcL LAB HEMETOLOGY METHOD 05/05/2024 1:24 PM EST [facility] Monocytes Absolute 0.65 0.20 - 1.00 K/mcL LAB HEMETOLOGY METHOD 05/05/2024 1:24 PM EST [facility] Eosinophils Absolute 0.11 0.00 - 0.50 K/mcL LAB HEMETOLOGY METHOD 05/05/2024 1:24 PM [facility] Basophils Absolute 0.01 0.00 - 0.20 K/mcL LAB HEMETOLOGY METHOD 05/05/2024 1:24 PM [facility] Immature Granulocytes Absolute 0.00 0.00 - 0.03 K/mcL LAB HEMETOLOGY METHOD 05/05/2024 1:24 PM [facility] Blood Venous blood specimen / Unknown Venipuncture / Unknown 05/05/2024 12:58 PM EST 05/05/2024 1:12 PM EST us Sin HERNANDEZ LAB BLOOD ORDERABLES Final Re sult [facility] [address] [place] [address], * (ABNORMAL) Basic metabolic panel (05/05/2024 12:58 PM EST) Sodium 143 133 - 145 mmol/L LAB CHEMISTRY METHOD 05/05/2024 1:46 PM [facility] Potassium 4.0 3.5 - 5.5 mmol/L LAB CHEMISTRY METHOD 05/05/2024 1:46 PM [facility] Chloride 111(H) 96 - 110 mmol/L LAB CHEMISTRY METHOD 05/05/2024 1:46 PM [facility] CO2 26 21 - 32 mmol/L LAB CHEMISTRY METHOD 05/05/2024 1:46 PM [facility] Anion Gap 6 3 - 11 LAB CHEMISTRY METHOD 05/05/2024 1:46 PM [facility] Glucose 90 70 - 100 mg/dL LAB CHEMISTRY METHOD 05/05/2024 1:46 PM [facility] BUN 20 5 - 25 mg/dL LAB CHEMISTRY METHOD 05/05/2024 1:46 PM [facility] Creatinine 0.71 0.70 - 1.30 mg/dL LAB CHEMISTRY METHOD 05/05/2024 1:46 PM [facility] eGFR 97 >=60 mL/min/1. 73m2 LAB CHEMISTRY METHOD 05/05/2024 1:46 PM [facility] Comment:Calculation based on the??Chronic Kidney Disease Epidemiology Collaboration (CKD-EPI) equation refit??without adjustment for race. BUN/Creatinine Ratio 28.2 LAB CHEMISTRY METHOD 05/05/2024 1:46 PM [facility] Calcium 9.2 8.5 - 10.5 mg/dL LAB CHEMISTRY METHOD 05/05/2024 1:46 PM [facility] Blood Venous blood specimen / Unknown Venipuncture / Unknown 05/05/2024 12:58 PM EST 05/05/2024 1:12 PM EST us Sin HERNANDEZ LAB BLOOD ORDERABLES Final Re sult [facility] [address] [place] [address], * Vascular US duplex lower extremity venous left (05/05/2024 10:06 AM EST) Anatomical Region Laterality Modality Vascular, Abdomen Ultrasound 05/05/2024 9:47 AM EST Impressions 05/05/2024 9:48 AM EST Normal examination. Code 29553 -------- FINAL REPORT -------- Dictated By: Jamal Buckner Dictated Date: 05/05/2024 09:47 ET Assigned Physician: Jamal Buckner Reviewed and Electronically Signed By: Jamal Buckner Signed Date: 05/05/2024 09:48 ET Workstation ID: [id number] Transcribed By: Self Edit Transcribed Date: 05/05/2024 09:47 ET Narrative 05/05/2024 9:48 AM EST HISTORY: The patient is a 73-year-old male with left lower extremity pain and edema. FINDINGS: Real-time ultrasonography of the venous system of the left lower extremity is performed. The common femoral, femoral, and popliteal veins are widely patent, without evidence of thrombus. There is normal compressibility and augmentation. The visualized calf veins are patent. Procedure Note Jamal Buckner MD - 05/05/2024 HISTORY: The patient is a 73-year-old male with left lower extremity painand edema. FINDINGS: Real-time ultrasonography of the venous system of the left lowerextremity is performed. The common femoral, femoral, and popliteal veinsare widely patent, without evidence of thrombus. There is normalcompressibility and augmentation. The visualized calf veins are patent. IMPRESSION: Normal examination. Code 18572 -------- FINAL REPORT -------- Dictated By: Jamal Buckner Dictated Date: 05/05/2024 09:47 ET Assigned Physician: Jamal Buckner Reviewed and Electronically Signed By: Jamal Buckner Signed Date: 05/05/2024 09:48 ET Workstation ID: [id number] Transcribed By: Self Edit Transcribed Date: 05/05/2024 09:47 ET Tarik HERNANDEZ CV VASCULAR PROCEDURES Final Result documented in this encounter Visit Diagnoses Diagnosis Pain- Primary Generalized pain Pain of left lower extremity documented in this encounter Administered Medications Inactive Administered Medications - up to 3 most recent administrations Medication Order MAR Action Action Date Dose Rate Site ketorolac (TORADOL) injection 15 mg 15 mg, intramuscular, Once, On Alia 05/05/24 at 1237, For 1 dose Given 05/05/2024 1:58 PM EST 15 mg R ight Deltoid methocarbamoL (ROBAXIN) tablet 750 mg 750 mg, oral, Once, On Alia 05/05/24 at 1237, For 1 dose Given 05/05/2024 1:59 PM EST 750 mg documented in this encounter Active and Recently Administered Medications Times are shown in EST. Scheduled Medication Order 05/03/2024 05/04/2024 05/05/2024 ketorolac (TORADOL) injection 15 mg (COMPLETED) 15 mg, intramuscular, Once, On Alia 05/05/24 at 1237, For 1 dose 1358 (Given - Provid er: Dina Le RN) methocarbamoL (ROBAXIN) tablet 750 mg (COMPLETED) 750 mg, oral, Once, On Alia 05/05/24 at 1237, For 1 dose 1359 (Given - Provid er: Dina Le RN) documented in this encounter Care Teams Forensic Audit Expert Relationship Specialty Start Date End Date Jonny Dejesus MD [address] [place] [id number] PCP - General Internal Medicine 03/29/24 documented as of this encounter
--- OUTSIDE RECORDS SUMMARY | 2024-05-06 15:16 | XMS_ITS | Clinical Summary ---
Author Organization 175 [facility] Address [address] [place] [address] Phone Care Team Providers Care Senior Fund Accountant Name Role Phone Jonny Dejesus MD Primary Care Provider [phone] Allergies No known active allergies Medications aspirin [...] HOURSAS NEEDED 270 tablet 3 4 Active dalfampridine 10 mg tablet extended release 12 hr TAKE 1 TABLET BY MOUTH EVERY 12 HOURS 60 tablet 4 5 Active dalfampridine 10 mg tablet extended release 12 hr msot 60 tablet 4 5 Active methocarbamoL (ROBAXIN) 750 mg tablet Take 1 tablet (750 mg total) by mouth 4 (four) times a day for 10 days. 40 each 5 05/16/19 25 Active tiZANidine (ZANAFLEX) 2 mg capsule Take 1 capsule (2 mg total) by mouth. 04/21/19 25 Discontinu ed(Therapy completed) ciclopirox (PENLAC) 8 % solution apply medication to top of nail daily for 48 weeks. 8 04/21/19 25 Discontinu ed(Therapy completed) ocrelizumab (Ocrevus) 30 mg/mL solution injection Inject into the vein Every 6 Months. 04/21/19 25 Discontinu ed(Therapy completed) siponimod (Mayzent) 2 mg tablet Take 1 tablet by mouth 1 (one) time each day. 30 tablet 5 5 05/04/19 25 Active Problems Problem Noted Date Diagnosed Date Spasticity 08/27/2019 Urinary urgency 08/27/2019 Multiple sclerosis 08/21/2017 Right foot drop 08/21/2017 Encounters Date Type Department Care Team Description 05/05/2024 12:16 PM EST - 05/05/2024 3:19 PM EST Emergency [facility] Emergency [address] [place] [address] Yoel Gilliam MD Pain (Primary Dx); Pain of left lower extremity Discharge Disposition: Home or Self Care 04/21/2024 8:00 AM EST Office Visit [facility] [address] [place] [address] Terry Rodrigues MD Multiple sclerosis ([facility]) (Primary Dx); Gait abnormality; Spasticity; Urinary urgency [...] History Medical History Date Comments Multiple sclerosis ([facility]) 08/21/2017 DX: Multiple sclerosis ([facility]) Right foot drop 08/21/2017 DX:Right foot dr op Cervical dystonia DX:Cervical dy stonia Periodic limb movement disorder DX:Periodic limb movement disorder Spastic hemiparesis affectin g dominant side ([facility]) DX:Spastic hemiparesis affec ting dominant side ([facility]) Vitamin B12 deficiency DX:Vitami n B12 deficiency Vitamin D deficiency DX:Vitamin D deficiency MS (multiple sclerosis) ([facility]) DX:MS (multiple sclerosis) ([facility]) Family History Medical History Relation Name Comments [...] Mass Index 25.85 05/05/2024 8:44 AM EST Plan of Treatment Upcoming Encounters Date Type Department Care Team (Late st Contact Info) Description 05/10/2024 3:00 PM EST Office Visit [facility] [address] [place] [phone] Terry Rodrigues MD [address] [place] [phone] 06/16/2024 8:30 AM EDT Office Visit [facility] [address] [place] [phone] Eda Bonds, MARY [address] [place] [address] [place] [address] Health Maintenance Due Date Last Done Comments [...] on patient's age to complete this topic Procedures Procedure Name Priority Date/Time Associated Diagnosis Comments XR KNEE 4+ VIEWS LEFT STAT 05/05/2024 1:38 PM EST CBC WITH AUTO DIFFERENTIAL STAT 05/05/2024 12:58 PM EST BASIC METABOLIC PANEL STAT 05/05/2024 12:58 PM EST CBC AND DIFFERENTIAL STAT 05/05/2024 12:58 PM EST VAS US DUPLEX LOWER EXT VENOUS LEFT Routine 05/05/2024 10:06 AM EST Pain from Last 3 Months Results * XR Knee 4+ Views Left [...] Signed Date: 05/05/2024 14:02 ET Workstation ID: [id number] Transcribed By: Self Edit Transcribed Date: 05/05/2024 [...] Signed Date: 05/05/2024 14:02 ET Workstation ID: [id number] Transcribed By: Self Edit Transcribed Date: 05/05/2024 14:01 ET Sin HERNANDEZ IMG XR PROCEDURES Final Resul t * (ABNORMAL) CBC auto differential (05/05/2024 12:58 PM EST) WBC 4.4(L) 4.8 - 10.8 K/mcL LAB HEMETOLOGY METHOD 05/05/2024 1:24 PM [facility] RBC 4.20(L) 4.50 - 5.50 M/mcL LAB HEMETOLOGY METHOD 05/05/2024 1:24 PM [facility] Hemoglobin 13.7 13.5 - 17.5 g/dL LAB HEMETOLOGY METHOD 05/05/2024 1:24 PM [facility] Hematocrit 39.9(L) 42.0 - 54.0 % LAB HEMETOLOGY METHOD 05/05/2024 1:24 PM [facility] MCV 95.9 79.0 - 98.0 FL LAB HEMETOLOGY METHOD 05/05/2024 1:24 PM [facility] MCH 32.9(H) 27.0 - 32.0 pcg LAB HEMETOLOGY METHOD 05/05/2024 1:24 PM [facility] MCHC 34.3 32.0 - 37.0 g/dL LAB HEMETOLOGY METHOD 05/05/2024 1:24 PM [facility] RDW 13.2 11.0 - 15.0 % LAB HEMETOLOGY METHOD 05/05/2024 1:24 PM [facility] Platelets 178 130 - 400 K/mcL LAB HEMETOLOGY METHOD 05/05/2024 1:24 PM [facility] MPV 10.5 7.0 - 11.0 FL LAB HEMETOLOGY METHOD 05/05/2024 1:24 PM [facility] NRBC 0.0 <1.0 % LAB HEMETOLOGY METHOD 05/05/2024 1:24 PM [facility] NRBC Absolute 0.00 <0.10 K/mcL LAB HEMETOLOGY METHOD 05/05/2024 1:24 PM [facility] Neutrophils Relative 76.5 % LAB HEMETOLOGY METHOD 05/05/2024 1:24 PM [facility] Lymphocytes Relative 5.9 % LAB HEMETOLOGY METHOD 05/05/2024 1:24 PM [facility] Monocytes Relative 14.9 % LAB HEMETOLOGY METHOD 05/05/2024 1:24 PM [facility] Eosinophils Relative 2.5 % LAB HEMETOLOGY METHOD 05/05/2024 1:24 PM [facility] Basophils Relative 0.2 % LAB HEMETOLOGY METHOD 05/05/2024 1:24 PM [facility] Immature Granulocytes Relative 0.0 % LAB HEMETOLOGY METHOD 05/05/2024 1:24 PM [facility] Neutrophils Absolute 3.34 1.50 - 7.00 K/mcL LAB HEMETOLOGY METHOD 05/05/2024 1:24 PM [facility] Lymphocytes Absolute 0.26(L) 1.00 - 5.00 K/mcL LAB HEMETOLOGY METHOD 05/05/2024 1:24 PM [facility] Monocytes Absolute 0.65 0.20 - 1.00 K/mcL LAB HEMETOLOGY METHOD 05/05/2024 1:24 PM [facility] Eosinophils Absolute 0.11 0.00 - 0.50 K/mcL LAB HEMETOLOGY METHOD 05/05/2024 1:24 PM [facility] Basophils Absolute 0.01 0.00 - 0.20 K/mcL LAB HEMETOLOGY METHOD 05/05/2024 1:24 PM [facility] Immature Granulocytes Absolute 0.00 0.00 - 0.03 K/mcL LAB HEMETOLOGY METHOD 05/05/2024 1:24 PM [facility] Blood Venous blood specimen / Unknown Venipuncture / Unknown 05/05/2024 12:58 PM EST 05/05/2024 1:12 PM EST Sin HERNANDEZ LAB BLOOD ORDERABLES Final Re sult [facility] [address] [place] [address], * (ABNORMAL) Basic metabolic panel (05/05/2024 12:58 PM EST) Sodium 143 133 - 145 mmol/L LAB CHEMISTRY METHOD 05/05/2024 1:46 PM EST [facility] Potassium 4.0 3.5 - 5.5 mmol/L LAB CHEMISTRY METHOD 05/05/2024 1:46 PM [facility] Chloride 111(H) 96 - 110 mmol/L LAB CHEMISTRY METHOD 05/05/2024 1:46 PM [facility] CO2 26 21 - 32 mmol/L LAB CHEMISTRY METHOD 05/05/2024 1:46 PM [facility] Anion Gap 6 3 - 11 LAB CHEMISTRY METHOD 05/05/2024 1:46 PM [facility] Glucose 90 70 - 100 mg/dL LAB CHEMISTRY METHOD 05/05/2024 1:46 PM [facility] BUN 20 5 - 25 mg/dL LAB CHEMISTRY METHOD 05/05/2024 1:46 PM [facility] Creatinine 0.71 0.70 - 1.30 mg/dL LAB CHEMISTRY METHOD 05/05/2024 1:46 PM [facility] eGFR 97 >=60 mL/min/1. 73m2 LAB CHEMISTRY METHOD 05/05/2024 1:46 PM [facility] Comment:Calculation based on the??Chronic Kidney Disease Epidemiology Collaboration (CKD-EPI) equation refit??without adjustment for race. BUN/Creatinine Ratio 28.2 LAB CHEMISTRY METHOD 05/05/2024 1:46 PM [facility] Calcium 9.2 8.5 - 10.5 mg/dL LAB CHEMISTRY METHOD 05/05/2024 1:46 PM [facility] Blood Venous blood specimen / Unknown Venipuncture / Unknown 05/05/2024 12:58 PM EST 05/05/2024 1:12 PM EST Sin HERNANDEZ LAB BLOOD ORDERABLES Final Re sult [facility] [address] [place] [address], [place] [phone] * Vascular US duplex lower extremity venous left (05/05/2024 10:06 AM EST) Anatomical Region Laterality Modality Vascular, Abdomen Ultrasound 05/05/2024 9:47 AM EST Impressions 05/05/2024 9:48 AM EST Normal examination. Code 36672 -------- FINAL REPORT -------- Dictated By: Jamal Buckner Dictated Date: 05/05/2024 09:47 ET Assigned Physician: Jamal Buckner Reviewed and Electronically Signed By: Jamal Buckner Signed Date: 05/05/2024 09:48 ET Workstation ID: [id number] Transcribed By: Self Edit Transcribed Date: 05/05/2024 [...] veins are patent. IMPRESSION: Normal examination. Code 48443 -------- FINAL REPORT -------- Dictated By: Jamal Buckner Dictated Date: 05/05/2024 09:47 ET Assigned Physician: Jamal Buckner Reviewed and Electronically Signed By: Jamal Buckner Signed Date: 05/05/2024 09:48 ET Workstation ID: [id number] Transcribed By: Self Edit Transcribed Date: 05/05/2024 09:47 ET us Tarik HERNANDEZ CV VASCULAR PROCEDURES Final Result from Last 3 Months Insurance MEDICARE [place]ICA[place] - [place] Advance Directives Documents on File Type Date Recorded Patient Residential Collections Expl anation Health Care Decision (hx) 01/19/2021 [...] (hx) 12/26/2020 AD CONTRERAS DIRECTIVE Care Teams Senior Fund Accountant Relationship Specialty Start Date End Date Jonny Dejesus MD [address] [place], [place] [phone] PCP - General Internal Medicine 03/29/24
--- OUTSIDE RECORDS SUMMARY | 2024-05-06 15:16 | XMS_ITS | Encounter Summary ---
[facility] Address [address] [place] [address] Care Team Providers Care Astrophysics Teacher Name Role Phone Jonny Dejesus MD Primary Care Provider [phone] Encounter Details Date Type Department Care Team (Late st Contact Info) Description 12/21/2023 8:28 AM EDT Hospital Encounter TH HISTORIC ENCOUNTERS EASTERN CONVERSION ONLY Eda Bonds PA [address] [place] [address] [place] [address] Social History Tobacco Use Types Packs/Day Years [...] Ba - 12/21/2023 8:30 AM EDT Follow [facility] CC: MS HPI: [...] early March. Bladder/bowel dysfunction: Continue care with [facility] Neuropathic pain : Continue gabapentin 600 mg [...] 40 minutes. The majority of the actual [id number] visit was spent counseling the patient with respect to the current neurological picture. Eda Bonds PA-C documented in this encounter Plan of Treatment Upcoming Encounters Date Type Department Care Team (Late st Contact Info) Description 05/10/2024 3:00 PM EST Office Visit [facility] [address] [phone] Terry Rodrigues MD 175 [facility] [address] [place] [address] 06/16/2024 8:30 AM EDT Office Visit [facility] 175 [facility] [address] [place] [phone] Eda Bonds PA [address] [place] [address] [place] [address] documented as of this encounter Visit Diagnoses Not on filedocumented in this encounter Care Teams Astrophysics Teacher Relationship Specialty Start Date End Date Jonny Dejesus MD PCP - General Internal Medicine 07/23/17 03/28/24 documented as of this encounter
--- OUTSIDE RECORDS SUMMARY | 2024-05-06 15:16 | XMS_ITS | Encounter Summary ---
Author Organization [facility] Address [address] [place] [address] Care Team Providers Care Manager Transit Name Role Phone Jonny Dejesus MD Primary Care Provider [phone] Reason for Referral * Consultation (Routine) - Authorized Specialty Diagnoses / Procedures Referred By Bertha hummel Referred To Contact Physical Therapy Diagnoses Multiple sclerosis (CMS/HCC) Gait abnormality Terry Rodrigues MD [address] [address] Phone: tel: fax: Referral ID Status Reason Start Date Expiration Date Visits Requested Visits Authorized [id number] Authorized Specialty Services Required 04/21/2024 04/21/2025 1 1 * Consultation (Routine) - Authorized Specialty Diagnoses / Procedures Referred By Bertha hummel Referred To Contact Occupational Therapy Diagnoses Multiple sclerosis (CMS/HCC) Gait abnormality Terry Rodrigues MD [address] [address] Phone: tel: fax: Referral ID Status Reason Start Date Expiration Date Visits Requested Visits Authorized [id number] Authorized Specialty Services Required 04/21/2024 04/21/2025 1 1 Encounter Details Date Type Department Care Team (Late st Contact Info) Description 04/21/2024 8:00 AM EST Office Visit [facility] [address] [place] [address] Terry Rodrigues MD [address] [place] [phone] Multiple sclerosis (CMS/HCC) (Primary Dx); Gait abnormality; [...] the memory Bladder/bowel dysfunction: Continue care with [facility] Urology RLS : requip Neuropathic pain [...] 60 minutes. The majority of the actual [id number]-[id number] visit was spent counseling the patient with respect to the current neurological picture. MD Terry Archibald MD documented in this encounter Plan of Treatment Upcoming Encounters Date Type Department Care Team (Late st Contact Info) Description 05/10/2024 3:00 PM EST Office Visit [facility] 175 [facility] [address] [place] [phone] Terry Rodrigues MD 175 [facility] [address] [place] [address] 06/16/2024 8:30 AM EDT Office Visit [facility] 175 [facility] [address] [place] [phone] Eda Bonds, MARY [address] [place] [address] [place] [address] Scheduled Referrals Name Type Priority Associated Diagnoses Order Schedule Ambulatory referral to Occupational Therapy Outpatient Referral Routine Multiple sclerosis (CMS/HCC) Gait abnormality 1 Occurrences starting 04/21/2024 until 04/21/2025 Ambulatory referral to Physical Therapy and Athletic Training Outpatient Referral Routine Multiple sclerosis (CMS/HCC) Gait abnormality 1 Occurrences starting 04/21/2024 until [...] documented as of this encounter Care Teams Manager Transit Relationship Specialty Start Date End Date Jonny Dejesus MD [address] [place] [address] PCP - General Internal Medicine 03/29/24 documented as of this encounter
--- OUTSIDE RECORDS SUMMARY | 2024-05-06 15:16 | XMS_ITS | Clinical Summary ---
Author Organization [facility] Address [address] [place] [address] Care Team Providers Care Bolt Maker Name Role Phone Jonny Olivera MD Primary Care Provider [phone] Allergies No known active allergies Medications Medication [...] age to complete this topic Care Teams Bolt Maker Relationship Specialty Start Date End Date Jonny Olivera MD [address] [place] [address] [place] [address] PCP - General Station Installer 08/18/19
== END 2024-05-06 15:14 | disposition home or self-care (01) ==
LOC: HO.HAP 15:13
PROVIDERS: Visit Provider Internal Medicine
DX: Z46.1 Encounter for fitting and adjustment of hearing aid (principal); H90.3 Sensorineural hearing loss, bilateral
CPT/HCPCS: 92592; 99499

== ENCOUNTER 2024-06-03 10:41 | Outpatient (REF) | payer MEDICARE, MEDICAID, SELFPAY ==
--- NOTE | 2024-06-03 12:18 | MHC.AU.HA3 ---
Hearing Instrument Follow-Up- Binaural Date of Visit: 06/03/24 Right Ear: Shaun, , Color, Serial Number: Narayan Singh [id number] SN: [id number] Color: Madison beige Datastage Architect Repair Warranty: 03/12/2023 Datastage Architect Loss and Damage Warranty: 03/12/2023 [facility] Service Plan: 03/12/2023 Battery Size: Rechargeable Division Engineer/Slim Tube: 1M Earmold/Dome/CShell/SlimTip:Medium open dome (no retention tail) Type of Wax Guard: CeruSTOP Dispensed By: [facility] Date of Fittin12/21/2019 Left Ear: Shaun, , Color, Serial Number: Narayan Singh [id number] SN: [id number] Color: Sand beige Datastage Architect Repair Warranty: 03/12/2023 Datastage Architect Loss and Damage Warranty: 03/12/2023 [facility] Service Plan: 03/12/2023 Battery Size: Rechargeable Division Engineer/Slim Tube: 1M Earmold/Dome/CShell/SlimTip: Medium open dome (no retention tail) Type of Wax Guard: CeruSHIELD Dispensed By: [facility] Date of Fittin12/21/2019 Follow-Up Summary: Hussein 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 Cleaned both aids, replaced dome and wax guard left, replaced right paint factory worker. Listening check positive. Had to switch to 5.0 paint factory worker, reviewed change in wax guard style. Recommendations: Recommendations: Hearing instrument follow-up or maintenance as needed. Diagnosis Code(s): Primary Diagnosis: H90.3 Bilateral Sensorineural Hearing Loss Signature: Provider: Jerrod Dorsey, [facility]
--- OUTSIDE RECORDS SUMMARY | 2024-06-03 12:53 | XMS_ITS | Encounter Summary ---
[facility] Organization [facility] Address [address] [place] [address] Care Team Providers Care Civil Estimator Name Role Phone Jonny Dejesus MD Primary Care Provider [phone] Reason for Visit * Reason Comments Leg Injury LEFT LEG PAIN BY EMS Encounter Details Date Type Department Care Team (Late st Contact Info) Description 05/05/2024 12:16 PM EST - 05/05/2024 3:19 PM EST Emergency [facility] Emergency [address] [place] [address] Yoel Gilliam MD [address] [place] [address] Pain (Primary Dx); Pain of left lower [...] sent through Care Everywhere. * Leg Pain (Estonian) documented in this encounter Medications at Time [...] 1 tablet (500 mcg total) by mouth. cyclobenzaprine (FLEXERIL) 10 mg tablet Take 1 tablet (10 mg total) by mouth. for 10 days 05/05/2024 ELDERBERRY FRUIT ORAL Take by mouth. magnesium hydroxide (MILK OF MAGNESIA) 400 mg/5 mL suspension Take by mouth. metaxalone (SKELAXIN) 800 mg tablet Take 1 tablet (800 mg total) by mouth 1 (one) time each day. 12/15/2022 metoprolol succinate (TOPROL-XL) 25 mg 24 hr tablet Take 1 tablet (25 mg total) by mouth 1 (one) time each day. 05/05/2024 metoprolol tartrate (LOPRESSOR) 25 mg tablet [...] 6 HOURSAS NEEDED 270 tablet 3 03/14/2024 dalfampridine 10 mg tablet extended release 12 hr TAKE 1 TABLET BY MOUTH EVERY 12 HOURS 60 tablet 4 04/29/2024 5 dalfampridine 10 mg tablet extended release 12 hr msot 60 tablet 4 04/29/2024 gabapentin (NEURONTIN) 400 mg capsule Take 1 capsule (400 mg total) by mouth. methocarbamoL (ROBAXIN) 750 mg tablet Take 1 tablet (750 mg total) by mouth 4 (four) times a day for 10 days. 40 each 05/05/2024 documented as of this encounter Ordered Prescriptions Prescription Sig Dispense Quantity Refills Last Filled Start Date End Date methocarbamoL (ROBAXIN) 750 mg tablet Take 1 tablet (750 mg total) by mouth 4 (four) times a day for 10 days. 40 each 05/05/2024 05/10/2024 documented in this encounter Discharge Disposition Disposition Code Departure Means Destination Comment s Home or Self Care documented in this encounter Progress Notes * Amberly Donato RN - 05/05/2024 8:34 AM EST PT TO ED BY EMS WITH LEFT LEG PAIN AND SWELLING SINCE THURSDAY. EMS STATES WARMTH TO LEG WELL. * Yoel Gilliam MD - 05/05/2024 8:24 AM EST This is a split/shared visit with MARY Kirk. I personally performed the medical decision making (MDM) for the care of this patient on 05/05/2024 as documented below 73-year-old male with a history of MS who presents for left lower leg pain and weakness. Patient states he has been having several days of pain with reduced strength. This is very different from prior MS flares. Also noted swelling. DVT ultrasound is negative. Plain film also negative. Patient agreeable to discharge and follow-up with neurology as needed. Yoel Gilliam MD 05/07/24 1:12 PM EST Emergency Medicine Note Patient Name: Hussein Bear Initial Evaluation: 05/05/2024 : 1950 Patient's PCP: Jonny Dejesus MD Emergency Physician: Yoel Gilliam MD History of Present Illness Chief Complaint: Chief Complaint Patient presents with Leg Injury LEFT LEG PAIN BY EMS HPI: Is a 73-year-old male history of MS followed by the [facility] here today for chief complaint of leg pain. He reports he is got pain along the popliteal region of his left leg. He reports ithas been ongoing for the last several days he reports he has full strength however he has difficulties bearing weight due to pain. He states this feels inconsistent with his MS related pain. He has not tried anything for symptomatic relief. States he uses a walker at baseline. ROS: I have performed a ROS with the pertinent positives and negatives documented in the history ofpresent illness. Previous History Past Medical History: Diagnosis Date Cervical dystonia DX:Cervical dystonia MS (multiple sclerosis) (CMS/HCC) DX:MS (multiple sclerosis) (HCC) Multiple sclerosis (CMS/HCC) 08/21/2017 DX:Multiple sclerosis (HCC) Periodic limb movement disorder DX:Periodic limb movement disorder Right foot drop 08/21/2017 DX:Right foot drop Spastic hemiparesis affecting dominant side (CMS/HCC) DX:Spastic hemiparesis affecting dominant side (HCC) Vitamin B12 deficiency DX:Vitamin B12 deficiency Vitamin D deficiency DX:Vitamin D deficiency No past surgical history on file. Social History Tobacco Use Smoking status: Former Smokeless tobacco: Never Substance Use Topics Alcohol use: Yes Drug use: No Family History Problem Relation Name Age of Onset Breast cancer Mother Heart disease Father Diabetes type II Father Multiple sclerosis Father's Sister has No Known Allergies. No current facility-administered medications on file prior to encounter. Current Outpatient Medications on File Prior to Encounter Medication Sig Dispense Refill ascorbic acid (VITAMIN [...] MOUTH EVERY 12 HOURS 60 tablet 4 dalfampridine 10 mg tablet extended release 12 hr msot 60 tablet 4 ELDERBERRY FRUIT ORAL Take by mouth. gabapentin [...] at bedtime. Take 3 tabs at bedtime [] siponimod (Mayzent) 2 mg tablet Take 1 tablet by mouth 1 (one) time each day. 30 tablet 5 tiZANidine (ZANAFLEX) 2 mg tablet TAKE 1 TABLET EVERY 6 HOURSAS NEEDED 270 tablet 3 Physical Exam ED Triage Vitals [05/05/24 0844] Temp Heart Rate Resp BP 36.5 ??C (97.7 ??F) 54 18 135/72 SpO2 Temp Source Heart Rate Source Patient Position 95 % Oral Apical Lying BP Location FiO2 (%) Left arm -- General: Well-appearing, well nourished, in no acute distress HEENT: PERRL, EOMI, external ears and nose appear unremarkable, airway is patent Neck: Supple, full range of motion Chest: Clear to auscultation; no evidence of respiratory distress Circulatory: RRR, extremities well perfused pedal pulse Abdomen: Non-distended, Non-Tender Extremities: Full active range of motion lower extremity, range of motion right lower extremity limited due to underlying MS at baseline. Normal ROM, No edema Skin: Warm and dry Neuro: Alert and oriented, no focal deficits Results Labs Reviewed BASIC METABOLIC PANEL - Abnormal Result Value Sodium 143 Potassium 4.0 Chloride 111 (*) CO2 26 Anion Gap 6 Glucose 90 BUN 20 Creatinine 0.71 eGFR 97 BUN/Creatinine Ratio 28.2 Calcium 9.2 CBC WITH AUTO DIFFERENTIAL - Abnormal WBC 4.4 (*) RBC 4.20 (*) Hemoglobin 13.7 Hematocrit 39.9 (*) MCV 95.9 MCH 32.9 (*) MCHC 34.3 RDW 13.2 Platelets 178 MPV 10.5 NRBC 0.0 NRBC Absolute 0.00 Neutrophils Relative 76.5 Lymphocytes Relative 5.9 Monocytes Relative 14.9 Eosinophils Relative 2.5 Basophils Relative 0.2 Immature Granulocytes Relative 0.0 Neutrophils Absolute 3.34 Lymphocytes Absolute 0.26 (*) Monocytes Absolute 0.65 Eosinophils Absolute 0.11 Basophils Absolute 0.01 Immature Granulocytes Absolute 0.00 CBC AND DIFFERENTIAL Narrative: The following orders were created for panel order CBC and differential. Procedure Abnormality Status --------- ------ CBC auto differential[[id number]] Abnormal Final result Please view results for these tests on the individual orders. Abnormal Labs Reviewed BASIC METABOLIC PANEL - Abnormal; Notable for the following components: Result Value Chloride 111 (*) All other components within normal limits CBC WITH AUTO DIFFERENTIAL - Abnormal; Notable for the following components: WBC 4.4 (*) RBC 4.20 (*) Hematocrit 39.9 (*) MCH 32.9 (*) Lymphocytes Absolute 0.26 (*) All other components within normal limits XR Knee 4+ Views Left Final Result FINDINGS/IMPRESSION: Degenerative changes most prominent in medial and patellofemoral compartments.No acute fracture. Normal alignment. Osteopenia. No significant joint effusion. Prepatellar soft tissue swelling. -------- FINAL REPORT -------- Dictated By: Joan Avila Dictated Date: 05/05/2024 14:01 ET Assigned Physician: Joan Avila Reviewed and Electronically Signed By: Joan Avila Signed Date: 05/05/2024 14:02 ET Workstation ID: [id number] Transcribed By: Self Edit Transcribed Date: 05/05/2024 14:01 ET Vascular US duplex lower extremity venous left Final Result Normal examination. Code 58735 -------- FINAL REPORT -------- Dictated By: Jamal Buckner Dictated Date: 05/05/2024 09:47 ET Assigned Physician: Jamal Buckner Reviewed and Electronically Signed By: Jamal Buckner Signed Date: 05/05/2024 09:48 ET Workstation ID: [id number] Transcribed By: Self Edit Transcribed Date: 05/05/2024 09:47 ET I have discussed the incidental/abnormal imaging and/or lab abnormalities with the patient and haveinstructed them the need for further evaluation and workup with their primary care doctor. I have provided the patient with a paper copy of the abnormality. The laboratory results, imaging results and other diagnostic exam results were reviewed in the EMR. EKG Interpretation Critical Care Time None ? Medical Decision Making Medications ketorolac (TORADOL) injection 15 mg (15 mg intramuscular Given 05/05/24 1358) methocarbamoL (ROBAXIN) tablet 750 mg (750 mg oral Given 05/05/24 1359) ED Course as of 05/07/24 1312 Alia May 05, 2024 1422 Basic metabolic panel(!) [DD] 1422 CBC and differential(!) [DD] 1422 XR Knee 4+ Views Left Show some degenerative changes patient's pain is more posterior I will give him an Darvin bandage for support however I think that this is less likely cause of his symptoms. Case was reviewed with Dr. Gilliam who is in agreement to discharging patient. He states that he was having difficulties getting in his house. I did offer him potential for PT eval with subacute hold patient adamant he wants to go home and will follow-up with his neurologist and primary care provider. [DD] ED Course User Index [DD] MARY Kirk Clinical Impressions as of 05/07/24 1312 Pain Pain of left lower extremity Procedures Procedures Diagnosis 1. Pain Vascular US duplex lower extremity venous left Vascular US duplex lower extremity venous left 2. Pain of left lower extremity Disposition Discharge ED Prescriptions Medication Sig Dispense Start Date End Date Auth. Provider methocarbamoL (ROBAXIN) 750 mg tablet Take 1 tablet (750 mg total) by mouth 4 (four) times a day for 10 days. 40 each 05/05/2024 05/15/2024 MARY Kirk Physician Attestation MARY Kirk 05/05/24 1246 MARY Kirk 05/05/242045 Yoel Gilliam MD 05/07/24 1312 documented in this encounter Plan of Treatment Upcoming Encounters Date Type Department Care Team (Late st Contact Info) Description 06/16/2024 8:30 AM EDT Office Visit [facility] for MS [facility] [address] [place] [id number] Eda Bonds PA [address] [place] [address] [place] [address] documented as of this encounter Procedures Procedure [...] Signed Date: 05/05/2024 14:02 ET Workstation ID: [id number] Transcribed By: Self Edit Transcribed Date: 05/05/2024 [...] Signed Date: 05/05/2024 14:02 ET Workstation ID: [id number] Transcribed By: Self Edit Transcribed Date: 05/05/2024 14:01 ET Sin HERNANDEZ IMG XR PROCEDURES Final Resul t * (ABNORMAL) CBC auto differential (05/05/2024 12:58 PM EST) WBC 4.4(L) 4.8 - 10.8 K/mcL LAB HEMETOLOGY METHOD 05/05/2024 1:24 PM [facility] RBC 4.20(L) 4.50 - 5.50 M/mcL LAB HEMETOLOGY METHOD 05/05/2024 1:24 PM [facility] Hemoglobin 13.7 13.5 - 17.5 g/dL LAB HEMETOLOGY METHOD 05/05/2024 1:24 PM [facility] Hematocrit 39.9(L) 42.0 - 54.0 % LAB HEMETOLOGY METHOD 05/05/2024 1:24 PM [facility] MCV 95.9 79.0 - 98.0 FL LAB HEMETOLOGY METHOD 05/05/2024 1:24 PM [facility] MCH 32.9(H) 27.0 - 32.0 pcg LAB HEMETOLOGY METHOD 05/05/2024 1:24 PM [facility] MCHC 34.3 32.0 - 37.0 g/dL LAB HEMETOLOGY METHOD 05/05/2024 1:24 PM [facility] RDW 13.2 11.0 - 15.0 % LAB HEMETOLOGY METHOD 05/05/2024 1:24 PM [facility] Platelets 178 130 - 400 K/mcL LAB HEMETOLOGY METHOD 05/05/2024 1:24 PM [facility] MPV 10.5 7.0 - 11.0 FL LAB HEMETOLOGY METHOD 05/05/2024 1:24 PM [facility] NRBC 0.0 <1.0 % LAB HEMETOLOGY METHOD 05/05/2024 1:24 PM [facility] NRBC Absolute 0.00 <0.10 K/mcL LAB HEMETOLOGY METHOD 05/05/2024 1:24 PM [facility] Neutrophils Relative 76.5 % LAB HEMETOLOGY METHOD 05/05/2024 1:24 PM [facility] Lymphocytes Relative 5.9 % LAB HEMETOLOGY METHOD 05/05/2024 1:24 PM [facility] Monocytes Relative 14.9 % LAB HEMETOLOGY METHOD 05/05/2024 1:24 PM [facility] Eosinophils Relative 2.5 % LAB HEMETOLOGY METHOD 05/05/2024 1:24 PM [facility] Basophils Relative 0.2 % LAB HEMETOLOGY METHOD 05/05/2024 1:24 PM [facility] Immature Granulocytes Relative 0.0 % LAB HEMETOLOGY METHOD 05/05/2024 1:24 PM [facility] Neutrophils Absolute 3.34 1.50 - 7.00 K/mcL LAB HEMETOLOGY METHOD 05/05/2024 1:24 PM [facility] Lymphocytes Absolute 0.26(L) 1.00 - 5.00 K/mcL LAB HEMETOLOGY METHOD 05/05/2024 1:24 PM [facility] Monocytes Absolute 0.65 0.20 - 1.00 K/mcL LAB HEMETOLOGY METHOD 05/05/2024 1:24 PM [facility] Eosinophils Absolute 0.11 0.00 - 0.50 K/mcL LAB HEMETOLOGY METHOD 05/05/2024 1:24 PM [facility] Basophils Absolute 0.01 0.00 - 0.20 K/mcL LAB HEMETOLOGY METHOD 05/05/2024 1:24 PM [facility] Immature Granulocytes Absolute 0.00 0.00 - 0.03 K/mcL LAB HEMETOLOGY METHOD 05/05/2024 1:24 PM [facility] Blood Venous blood specimen / Unknown Venipuncture / Unknown 05/05/2024 12:58 PM EST 05/05/2024 1:12 PM EST us Sin HERNANDEZ LAB BLOOD ORDERABLES Final Re sult [facility] [address] [place] [address], * (ABNORMAL) Basic metabolic panel (05/05/2024 12:58 PM EST) Sodium 143 133 - 145 mmol/L LAB CHEMISTRY METHOD 05/05/2024 1:46 PM [facility] Potassium 4.0 3.5 - 5.5 mmol/L LAB CHEMISTRY METHOD 05/05/2024 1:46 PM [facility] Chloride 111(H) 96 - 110 mmol/L LAB CHEMISTRY METHOD 05/05/2024 1:46 PM [facility] CO2 26 21 - 32 mmol/L LAB CHEMISTRY METHOD 05/05/2024 1:46 PM [facility] Anion Gap 6 3 - 11 LAB CHEMISTRY METHOD 05/05/2024 1:46 PM [facility] Glucose 90 70 - 100 mg/dL LAB CHEMISTRY METHOD 05/05/2024 1:46 PM [facility] BUN 20 5 - 25 mg/dL LAB CHEMISTRY METHOD 05/05/2024 1:46 PM [facility] Creatinine 0.71 0.70 - 1.30 mg/dL LAB CHEMISTRY METHOD 05/05/2024 1:46 PM [facility] eGFR 97 >=60 mL/min/1. 73m2 LAB CHEMISTRY METHOD 05/05/2024 1:46 PM [facility] Comment:Calculation based on the??Chronic Kidney Disease Epidemiology Collaboration (CKD-EPI) equation refit??without adjustment for race. BUN/Creatinine Ratio 28.2 LAB CHEMISTRY METHOD 05/05/2024 1:46 PM EST [facility] Calcium 9.2 8.5 - 10.5 mg/dL LAB CHEMISTRY METHOD 05/05/2024 1:46 PM EST [facility] Blood Venous blood specimen / Unknown Venipuncture / Unknown 05/05/2024 12:58 PM EST 05/05/2024 1:12 PM EST us Sin HERNANDEZ LAB BLOOD ORDERABLES Final Re sult [facility] [address] [place] [address], [place] [phone] * Vascular US duplex lower extremity venous left (05/05/2024 10:06 AM EST) Anatomical Region Laterality Modality Vascular, Abdomen Ultrasound 05/05/2024 9:47 AM EST Impressions 05/05/2024 9:48 AM EST Normal examination. Code 96603 -------- FINAL REPORT -------- Dictated By: Jamal Buckner Dictated Date: 05/05/2024 09:47 ET Assigned Physician: Jamal Buckner Reviewed and Electronically Signed By: Jamal Buckner Signed Date: 05/05/2024 09:48 ET Workstation ID: [id number] Transcribed By: Self Edit Transcribed Date: 05/05/2024 [...] veins are patent. IMPRESSION: Normal examination. Code 82152 -------- FINAL REPORT -------- Dictated By: Jamal Buckner Dictated Date: 05/05/2024 09:47 ET Assigned Physician: Jamal Buckner Reviewed and Electronically Signed By: Jamal Buckner Signed Date: 05/05/2024 09:48 ET Workstation ID: [id number] Transcribed By: Self Edit Transcribed Date: 05/05/2024 [...] RN) documented in this encounter Care Teams Civil Estimator Relationship Specialty Start Date End Date Jonny Dejesus MD [address] [place] [address] PCP - General Internal Medicine 03/29/24 documented as of this encounter
--- OUTSIDE RECORDS SUMMARY | 2024-06-03 12:53 | XMS_ITS | Continuity of Care Document ---
Author Organization [facility] Address [address] [address]- Care Team Providers Care Food Expeditor Name Role Phone Jonny Daniels MD Primary Care Physician [facility] [id number] Date(s): 04/12/24 - 05/12/24 [facility] [address] [place] [phone]- Encounter Type: Triage Allergies, Adverse Reactions, Alerts No Known Allergies Immunizations Given and Recorded Vaccine Date Status Refusal Reason SARS-CoV-2 (COVID-19) mRNA BNT-162b2 vac 06/22/20 Given SARS-CoV-2 (COVID-19) mRNA BNT-162b2 vac 06/01/20 Given Medications Ativan 1 mg oral tablet 1 tablet = 1 mg, By Mouth, Daily at bedtime, # 30 tablet, 5 Refills, Maintenance, 10/26/14 12:15:29 PM EDT, JW will need to reorder this medication next time. I am ordering for him as he is away. Start Date: 10/26/14 Stop Date: 04/24/15 Status: Ordered Quantity: 30.0 Unit: tablet Repeat number: 6 baclofen 10 mg oral tablet See Instructions, 1.5 tablet By Mouth morning and afternoon. At night 1 tablet taken with a 20 mg tablet., # 360 tablet, Refills 1, Tot. Refills 1, Maintenance, 04/13/24 9:59:00 AM EST, Instructions Replace Required Details, Route to Pharmacy Electronically, [facility]/pharmacy #[id number], Partial fill upon patient request if the prescription is for a schedule II opioid drug., 175.26, cm, 12/31/23 8:35:00 EDT, Height Start Date: 04/13/24 Status: Ordered Quantity: 360.0 Unit: tablet Repeat number: 2 baclofen 20 mg oral tablet See Instructions, 1 tablet By Mouth Daily morning & afternoon & 2 tablets at bedtime., # 360 tablet, Refills 1, Tot. Refills 1, Maintenance, 01/20/24 10:45:00 AM EST, Instructions Replace Required Details, Route to Pharmacy Electronically, [facility]/pharmacy #[id number], Partial fill upon patient request if the prescription is for a schedule II opioid drug., 175.26, cm, 12/31/23 8:35:00 EDT, Height Start Date: 01/20/24 Status: Ordered Quantity: 360.0 Unit: tablet Repeat number: 2 Copaxone 40 mg/mL subcutaneous solution See Instructions, One injection, SC, three times per week. Wait at least 48 hours between doses, # 12 Doses, 3 Refills, Maintenance, 12/12/14 4:06:29 PM EDT Start Date: 12/12/14 Status: Ordered Quantity: 12.0 Unit: Doses Repeat number: 4 DX: Multiple Sclerosis DX: Multiple Sclerosis, See Instructions, # 1 units, Refills 0, Tot. Refills 0, Maintenance, Autoject 2 for copaxone, 07/14/14 2:39:12 PM EDT, Compound Start Date: 07/14/14 Status: Ordered Quantity: 1.0 Unit: Units Repeat number: 1 gabapentin 600 mg oral tablet See Instructions, 1/2 tab morning & afternoon & 2 tablet at night., 0 Refills, Maintenance,12/31/23 9:31:00 AM EDT, Partial fill upon patient request if the prescription is for a schedule IIopioid drug. Start Date: 12/31/23 Status: Ordered Repeat number: 1 GABAPENTIN 600MG(N) TAB GABAPENTIN 600MG(N) TAB, 0 Refills, Maintenance, 12/31/23 8:38:00 AM EDT Start Date: 12/31/23 Status: Ordered Repeat number: 1 Metoprolol Succinate ER 25 mg oral tablet, extended release 25 mg, 1, tablet, Refills 0, Maintenance, 12/31/23 8:39:00 AM EDT, Partial fill upon patient request if the prescription is for a schedule II opioid drug. Start Date: 12/31/23 Status: Ordered Repeat number: 1 oxybutynin 10 mg/24 hr oral tablet, extended release 0 Refills, Maintenance, 12/31/23 8:40:00 AM EDT, Partial fill upon patient request if the prescription is for a schedule II opioid drug. Start Date: 12/31/23 Status: Ordered Repeat number: 1 Skelaxin 800 mg oral tablet 1 tablet = 800 mg, By Mouth, Daily at bedtime, 0 Refills, Maintenance, 10/03/14 8:29:08 AM EDT Start Date: 10/03/14 Status: Ordered Repeat number: 1 Splint See Instructions, # 1 units, Maintenance, AFO. DX: multiple sclerosis, 08/27/09 9:45:40 AM EDT Start Date: 08/27/09 Status: Ordered Quantity: 1.0 Unit: Units Repeat number: 1 tiZANidine 4 mg oral tablet See Instructions, Take 1 tab in a.m., 1/2 tab afternoon and 2 tabs at night. Can increae by 1/2 tabevery 2 days till on max 2 tablets (8mg) 3x/day., # 270 tablet, Refills 1, Tot. Refills 1, Maintenance, 01/20/24 12:14:00 PM EST, Instructions Replace Required Details, Route to Pharmacy Electronically, [facility]/pharmacy #[id number], Partial fill upon patient request if the prescription is for a schedule II opioid drug., 175.26, cm, 12/31/23 8:35:00 EDT, Height Start Date: 01/20/24 Status: Ordered Quantity: 270.0 Unit: tablet Repeat number: 2 Vitamin D3 1000 intl units oral capsule 1 capsule = 1,000 International_Units, By Mouth, Daily, # 90 capsule, 4 Refills, Maintenance, 09/13/13 8:21:15 AM EDT, [facility] Start Date: 09/13/13 Stop Date: 12/07/14 Status: Ordered Quantity: 90.0 Unit: capsule Repeat number: 5 Problem List Condition Confirmation Course Effective Dates Status Health [facility] Informant Multiple sclerosis Confirmed Active Spasticity Confirmed Active Social History Social History Type Response Smoking Status Never smoker entered on: 07/03/14 Sex Sex Representation Male (finding) Patient Care team information Care Team Personnel Name: Roxana Belle RN Position: [facility] Onco RN Member Role: Primary Care Nurse Name: Jonny Daniels MD Position: [facility] Physician - Primary Care Member Role: PCP Address: [address] [place] [address] Telecom: Name: Candy Khan RN Position: [facility] AMB Nurse Member Role: Primary Care Nurse Care Team Related Persons Name: NNAMDI BARRETO Name: CANDI BARRETO Insurance Providers Guarantor name: LUNA BARRETO Health Plan Information #: 1 Payer: MEDICARE PART B OUTPT Member Number: NA Policy Number: NA Group Number: NA Health Plan Information #: 2 Payer: [facility] Member Number: NA Policy Number: NA Group Number: NA
--- OUTSIDE RECORDS SUMMARY | 2024-06-03 12:53 | XMS_ITS | Clinical Summary ---
Author Organization 175 [facility] Address [address] [place] [address] Phone Care Team Providers Care Cathode Ray Tube Salvage Processor Name Role Phone Jonny Dejesus MD Primary Care Provider [phone] Allergies No known active allergies Medications aspirin 81 mg chewable tablet Chew 1 tablet (81 mg total). Active baclofen (LIORESAL) 20 mg tablet Take 1 tablet (20 mg total) by mouth. 4 Active ELDERBERRY FRUIT ORAL Take by mouth. Acti ve magnesium hydroxide (MILK OF MAGNESIA) 400 mg/5 [...] 12 HOURS 60 tablet 4 5 Active cyclobenzaprin e (FLEXERIL) 10 mg tablet Take 1 tablet (10 mg total) by mouth. for 10 days 5 Active metoprolol succinate (TOPROL-XL) 25 mg 24 hr tablet Take 1 tablet (25 mg total) by mouth 1 (one) time each day. 5 Active dalfampridine 10 mg tablet extended release 12 hr Take 1 tablet by mouth every 12 (twelve) hours. 60 tablet 4 5 Active dalfampridine 10 mg tablet extended release 12 hr TAKE 1 TABLET BY MOUTH EVERY 12 HOURS 60 tablet 4 5 Active gabapentin (NEURONTIN) 300 mg capsule Take 2 capsules (600 mg total) by mouth 3 (three) times a day. 180 capsule 3 5 Active gabapentin (NEURONTIN) 400 mg capsule Take 1 capsule (400 mg total) by mouth. 05/24/19 25 Discontinu ed(Reorder ) siponimod (Mayzent) 2 mg tablet Take 1 tablet by mouth 1 (one) time each day. 30 tablet 5 5 05/04/19 25 dalfampridine 10 mg tablet extended release 12 hr TAKE 1 TABLET BY MOUTH EVERY 12 HOURS 60 tablet 4 5 05/12/19 25 Discontinu ed(Reorder ) dalfampridine 10 mg tablet extended release 12 hr msot 60 tablet 4 5 05/13/19 25 Discontinu ed(Reorder ) methocarbamoL (ROBAXIN) 750 mg tablet Take 1 tablet (750 mg total) by mouth 4 (four) times a day for 10 days. 40 each 5 05/10/19 25 Discontinu ed(Therapy completed) dalfampridine 10 mg tablet extended release 12 hr msot 60 tablet 4 5 05/17/19 25 Discontinu ed(Reorder ) Active Problems Problem Noted Date Diagnosed Date Spasticity 08/27/2019 Urinary urgency 08/27/2019 Multiple sclerosis 08/21/2017 Right foot drop 08/21/2017 Encounters Date Type Department Care Team Description 05/10/2024 3:00 PM EST Office Visit [facility] [address] [address] Terry Rodrigues MD Multiple sclerosis ([facility]) (Primary Dx); Spasticity; Gait abnormality 05/05/2024 12:16 PM EST - 05/05/2024 3:19 PM EST Emergency [facility] Emergency [address] [place] [id number] Yoel Gilliam MD Pain (Primary Dx); Pain of left lower extremity Discharge Disposition: Home or Self Care 04/21/2024 8:00 AM EST Office Visit [facility] [address] [address] Terry Rodrigues MD Multiple sclerosis ([facility]) (Primary Dx); Gait abnormality; Spasticity; Urinary urgency from Last 3 Months Immunizations Name Administration Dates Next Due Influenza Quadravalent, 0.5m l (Fluad) 65yo and older 12/25/2022,12/15/2020,01/09/2020 Influenza Quadravalent, 0.5m l (Fluzone High-dose) 65yo and older 02/15/2019,02/02/2018,01/14/2017 Myngle SARS-CoV-2 COVID-19, mRNA, LNP-S, preservative free 06/22/2020,06/01/2020 Pneumococcal polysaccharide 23 valent (Pneumovax 23) 2yo and older 01/14/2017 Tdap Tetanus diptheria acell ular pertussis (Boostrix; Adacel) 7yo and older 07/01/2018 Medical History Medical History Date Comments Multiple sclerosis ([facility]) 08/21/2017 DX: Multiple sclerosis ([facility]) Right foot drop 08/21/2017 DX:Right foot dr escamilla Cervical dystonia DX:Cervical dy stonia Periodic limb movement disorder DX:Periodic limb movement disorder Spastic hemiparesis affectin g dominant side (CMS/HCC) DX:Spastic hemiparesis affec ting dominant side (HCC) Vitamin B12 deficiency DX:Vitami n B12 deficiency Vitamin D deficiency DX:Vitamin D deficiency MS (multiple sclerosis) (CMS/HCC) DX:MS (multiple sclerosis) (HCC) Family History Medical History Relation Name Comments [...] Sign Reading Time Taken Comments Blood Pressure 123/75 05/10/2024 3:04 PM EST Pulse 54 05/10/2024 3:04 PM EST Temperature 36.3 ??C (97.3 ??F) 05/10/2024 3:04 PM ES T Respiratory Rate 18 05/05/2024 3:18 PM EST Oxygen Saturation 96% 05/10/2024 3:04 PM EST Inhaled Oxygen Concentration - - Weight 77.1 kg (170 lb) 05/05/2024 8:44 AM EST Height 172.7 cm (5' 8 ) 05/05/2024 8:44 AM EST Body Mass Index 25.85 05/05/2024 8:44 AM EST Plan of Treatment Upcoming Encounters Date Type Department Care Team (Late st Contact Info) Description 06/16/2024 8:30 AM EDT Office Visit [facility] 175 [facility] [address] [place] [address] Eda Bonds PA [address] [facility] [place] [address] Health Maintenance Due Date Last Done Comments Abdominal Aortic Aneurysm (AAA) Screen 02/21/2022 Cholesterol Screening (Lipid Panel) 02/21/2022 Colorectal Cancer Screening: Colonoscopy 02/21/2022 Depression Screening 02/21/2022 Falls Risk Assessment 02/21/2022 Hepatitis C Screening 02/21/2022 Social Influencers of Health Screening 02/21/2022 Medicare Annual Wellness Visit 03/25/2023 03/25/2022 COVID-19 Vaccine ( season) 2023 01/19/2021, 06/22/2020, 06/01/2020 Influenza Vaccine (#1) 2023 3, 12/15/2021, 12/15/2020, Additional history exists RSV Immunization [...] Signed Date: 05/05/2024 14:02 ET Workstation ID: [id number] Transcribed By: Self Edit Transcribed Date: 05/05/2024 [...] Signed Date: 05/05/2024 14:02 ET Workstation ID: [id number] Transcribed By: Self Edit Transcribed Date: 05/05/2024 14:01 ET Sin HERNANDEZ IMG XR PROCEDURES Final Resul t * (ABNORMAL) CBC auto differential (05/05/2024 12:58 PM EST) WBC 4.4(L) 4.8 - 10.8 K/mcL LAB HEMETOLOGY METHOD 05/05/2024 1:24 PM [facility] RBC 4.20(L) 4.50 - 5.50 M/mcL LAB HEMETOLOGY METHOD 05/05/2024 1:24 PM [facility] Hemoglobin 13.7 13.5 - 17.5 g/dL LAB HEMETOLOGY METHOD 05/05/2024 1:24 PM [facility] Hematocrit 39.9(L) 42.0 - 54.0 % LAB HEMETOLOGY METHOD 05/05/2024 1:24 PM [facility] MCV 95.9 79.0 - 98.0 FL LAB HEMETOLOGY METHOD 05/05/2024 1:24 PM [facility] MCH 32.9(H) 27.0 - 32.0 pcg LAB HEMETOLOGY METHOD 05/05/2024 1:24 PM [facility] MCHC 34.3 32.0 - 37.0 g/dL LAB HEMETOLOGY METHOD 05/05/2024 1:24 PM [facility] RDW 13.2 11.0 - 15.0 % LAB HEMETOLOGY METHOD 05/05/2024 1:24 PM [facility] Platelets 178 130 - 400 K/mcL LAB HEMETOLOGY METHOD 05/05/2024 1:24 PM [facility] MPV 10.5 7.0 - 11.0 FL LAB HEMETOLOGY METHOD 05/05/2024 1:24 PM [facility] NRBC 0.0 <1.0 % LAB HEMETOLOGY METHOD 05/05/2024 1:24 PM [facility] NRBC Absolute 0.00 <0.10 K/mcL LAB HEMETOLOGY METHOD 05/05/2024 1:24 PM [facility] Neutrophils Relative 76.5 % LAB HEMETOLOGY METHOD 05/05/2024 1:24 PM [facility] Lymphocytes Relative 5.9 % LAB HEMETOLOGY METHOD 05/05/2024 1:24 PM [facility] Monocytes Relative 14.9 % LAB HEMETOLOGY METHOD 05/05/2024 1:24 PM [facility] Eosinophils Relative 2.5 % LAB HEMETOLOGY METHOD 05/05/2024 1:24 PM [facility] Basophils Relative 0.2 % LAB HEMETOLOGY METHOD 05/05/2024 1:24 PM [facility] Immature Granulocytes Relative 0.0 % LAB HEMETOLOGY METHOD 05/05/2024 1:24 PM [facility] Neutrophils Absolute 3.34 1.50 - 7.00 K/mcL LAB HEMETOLOGY METHOD 05/05/2024 1:24 PM [facility] Lymphocytes Absolute 0.26(L) 1.00 - 5.00 K/mcL LAB HEMETOLOGY METHOD 05/05/2024 1:24 PM [facility] Monocytes Absolute 0.65 0.20 - 1.00 K/mcL LAB HEMETOLOGY METHOD 05/05/2024 1:24 PM [facility] Eosinophils Absolute 0.11 0.00 - 0.50 K/mcL LAB HEMETOLOGY METHOD 05/05/2024 1:24 PM [facility] Basophils Absolute 0.01 0.00 - 0.20 K/mcL LAB HEMETOLOGY METHOD 05/05/2024 1:24 PM EST [facility] Immature Granulocytes Absolute 0.00 0.00 - 0.03 K/mcL LAB HEMETOLOGY METHOD 05/05/2024 1:24 PM [facility] Blood Venous blood specimen / Unknown Venipuncture / Unknown 05/05/2024 12:58 PM EST 05/05/2024 1:12 PM EST us Sin HERNANDEZ LAB BLOOD ORDERABLES Final Re sult [facility] [address] [place] [address], [place] [phone] * (ABNORMAL) Basic metabolic panel (05/05/2024 12:58 PM EST) Sodium 143 133 - 145 mmol/L LAB CHEMISTRY METHOD 05/05/2024 1:46 PM [facility] Potassium 4.0 3.5 - 5.5 mmol/L LAB CHEMISTRY METHOD 05/05/2024 1:46 PM [facility] Chloride 111(H) 96 - 110 mmol/L LAB CHEMISTRY METHOD 05/05/2024 1:46 PM [facility] CO2 26 21 - 32 mmol/L LAB CHEMISTRY METHOD 05/05/2024 1:46 PM [facility] Anion Gap 6 3 - 11 LAB CHEMISTRY METHOD 05/05/2024 1:46 PM [facility] Glucose 90 70 - 100 mg/dL LAB CHEMISTRY METHOD 05/05/2024 1:46 PM [facility] BUN 20 5 - 25 mg/dL LAB CHEMISTRY METHOD 05/05/2024 1:46 PM [facility] Creatinine 0.71 0.70 - 1.30 mg/dL LAB CHEMISTRY METHOD 05/05/2024 1:46 PM [facility] eGFR 97 >=60 mL/min/1. 73m2 LAB CHEMISTRY METHOD 05/05/2024 1:46 PM EST [facility] Comment:Calculation based on the??Chronic Kidney Disease Epidemiology Collaboration (CKD-EPI) equation refit??without adjustment for race. BUN/Creatinine Ratio 28.2 LAB CHEMISTRY METHOD 05/05/2024 1:46 PM EST [facility] Calcium 9.2 8.5 - 10.5 mg/dL LAB CHEMISTRY METHOD 05/05/2024 1:46 PM EST [facility] Blood Venous blood specimen / Unknown Venipuncture / Unknown 05/05/2024 12:58 PM EST 05/05/2024 1:12 PM EST us Sin HERNANDEZ LAB BLOOD ORDERABLES Final Re sult [facility] [address] [place] [address], * Vascular US duplex lower extremity venous left (05/05/2024 10:06 AM EST) Anatomical Region Laterality Modality Vascular, Abdomen Ultrasound 05/05/2024 9:47 AM EST Impressions 05/05/2024 9:48 AM EST Normal examination. Code 06892 -------- FINAL REPORT -------- Dictated By: Jamal Buckner Dictated Date: 05/05/2024 09:47 ET Assigned Physician: Jamal Buckner Reviewed and Electronically Signed By: Jamal Buckner Signed Date: 05/05/2024 09:48 ET Workstation ID: [id number] Transcribed By: Self Edit Transcribed Date: 05/05/2024 [...] veins are patent. IMPRESSION: Normal examination. Code 17265 -------- FINAL REPORT -------- Dictated By: Jamal Buckner Dictated Date: 05/05/2024 09:47 ET Assigned Physician: Jamal Buckner Reviewed and Electronically Signed By: Jamal Buckner Signed Date: 05/05/2024 09:48 ET Workstation ID: [id number] Transcribed By: Self Edit Transcribed Date: 05/05/2024 09:47 ET Tarik HERNANDEZ CV VASCULAR PROCEDURES Final Result from Last 3 Months Insurance MEDICARE [place]ICAID - [place] Advance Directives Documents on File Type Date Recorded Patient Distributor Publications Expl anation Health Care Decision (hx) 01/19/2021 [...] (hx) 12/26/2020 AD CONTRERAS DIRECTIVE Care Teams Cathode Ray Tube Salvage Processor Relationship Specialty Start Date End Date Jonny Dejesus MD [address] [place] [address] PCP - General Internal Medicine 03/29/24
--- OUTSIDE RECORDS SUMMARY | 2024-06-03 12:53 | XMS_ITS | Encounter Summary ---
Author Organization [facility] Address [address] [place] [address] Care Team Providers Care Manager Equity Name Role Phone Jonny Dejesus MD Primary Care Provider Reason for Referral * Consultation (Routine) - Authorized Specialty Diagnoses / Procedures Referred By Bertha hummel Referred To Contact Physical Medicine and Rehabilitation Diagnoses Multiple sclerosis (CMS/HCC) Spasticity Gait abnormality Terry Rodrigues MD [address] [place] [address] Phone: tel: fax: [facility] [address] Phone: tel: fax: Referral ID Status Reason Start Date Expiration Date Visits Requested Visits Authorized [id number] Authorized Specialty Services Required 05/10/2024 05/10/2025 1 1 * Home Health (Routine) - Pending Review Specialty Diagnoses / Procedures Referred By Bertha hummel Referred To Contact Home Health Services Diagnoses Multiple sclerosis (CMS/HCC) Spasticity Gait abnormality Terry Rodrigues MD [address] [address] Phone: tel: fax: Referral ID Status Reason Start Date Expiration Date Visits Requested Visits Authorized [id number] Pending Review Consult and Treat 05/10/2024 05/10/2025 1 1 Encounter Details Date Type Department Care Team (Late Contact Info) Description 05/10/2024 3:00 PM EST Office Visit [facility] [address] [place] [phone] Terry Rodrigues MD [address] [place] [phone] Multiple sclerosis (CMS/HCC) (Primary Dx); Spasticity; Gait abnormality Social History Tobacco Use Types Packs/Day Years [...] 05/10/2024 3:04 PM ES T Respiratory Rate - - Oxygen Saturation 96% 05/10/2024 3:04 PM EST Inhaled Oxygen Concentration - - Weight - - Height - - Body Mass Index - - documented in this encounter Progress Notes * Terry Rodrigues MD - 05/10/2024 3:00 PM EST C: MS HPI: Patient is a [...] history Patient is here for follow up for an urgent visit posthospital presentation No new neurological symptom concerning for demyelination since last visit Patient still on Mayzent tolerating it well , last white blood cell 4.4 ALC 0.26 we will continue to monitor Since last visit on Thursday 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 of left lower extremity pain and swelling and tenderness patient has limited ambulation concern for a DVT recommended presentation to the ER patient had an ultrasound negative x-ray of his knee does show degenerative disease swelling no effusion Further discussion about symptoms patient symptoms are more related to pain mainly in the hamstringarea/posterior knee he has been having some difficulty standing from sitting and some postural changes discussed with the patient that we need physiatry evaluation prior to going back to physical therapy to ensure no interventions needed or extra workup with musculoskeletal pain He denies any new neurological symptom blurry vision double vision tingling numbness or weakness Last visit history Patient is here for follow up [...] mg total) by mouth. for 10 days dalfampridine 10 mg tablet extended release 12 hr TAKE 1 TABLET BY MOUTH EVERY 12 HOURS 60 tablet 4 dalfampridine 10 mg tablet extended release 12 hr msot 60 tablet 4 dalfampridine 10 mg tablet extended release 12 hr TAKE 1 TABLET BY MOUTH EVERY 12 HOURS 60 tablet 4 ELDERBERRY FRUIT ORAL Take by mouth. gabapentin (NEURONTIN) 400 mg capsule Take 1 capsule (400 mg total) by mouth. magnesium hydroxide (MILK OF MAGNESIA) 400 mg/5 mL suspension Take by mouth. metaxalone (SKELAXIN) 800 mg tablet Take 1 tablet (800 mg total) by mouth 1 (one) time each day. metoprolol succinate (TOPROL-XL) 25 mg 24 hr [...] 6 HOURSAS NEEDED 270 tablet 3 [DISCONTINUED] methocarbamoL (ROBAXIN) 750 mg tablet Take 1 tablet (750 mg total) by mouth 4 (four)times a day for 10 days. 40 each 0 [] siponimod (Mayzent) 2 mg tablet Take 1 tablet by mouth 1 (one) time each day. 30 tablet 5 No current facility-administered medications on file prior to visit. Neuro Exam Vitals: 05/10/24 1504 BP: 123/75 Pulse: 54 Temp: 36.3 ??C (97.3 ??F) SpO2: 96% General: A&Ox3 Cranial Nerves: PERRL, EOMI without nystagmus, facial strength symmetric, no facial droop, tongue protrusion midline, speech clear, shoulder shrug symmetric . No red desaturation. Motor: strength 5/5 bilateral UE & LE. R hip flexion 4-/5, right hamstring 3-4/5 rt ankle dorsiflexion 1/5 Increased tone RLE tenderness on the hamstring and with hamstring stretch Sensory: slight decreased sensation distally RUE Reflexes: 2+/4+ bilateral biceps, 2+/4+ bilateral patellar Cerebellar: FTN without dysmetria or ataxia bilaterally, decreased dexterity R hand, negative Rhomberg Gait: stiff, spastic gait, wearing right AFO and using cane. 25 foot walk: Last visit 9.6, 10.6 seconds A/P: Multiple Sclerosis: Hussein Bear is a 73-year-old male with multiple sclerosis treated with Mayzent 5 days/week for disease modifying therapy. He continues to note slow gradual progression but prefers to continue with Mayzent at this time. Patient is here for a sick visit after hospital presentation with left lower extremity pain mainly in the hamstring area and the knee, ultrasound negative for DVT, on examination musculoskeletal origin of his pain with tenderness with hamstring stretch A. Disease modifying therapy and diagnostic plan: -Continue Mayzent frequency 5 days/week - labs for safety 4.4 ALC 0.26 , will consider spacing Mayzent every other day next visit if ALC continue to decrease - MRI brain and cervical spine with [...] the memory Bladder/bowel dysfunction: Continue care with [facility] Urology RLS : requip Neuropathic pain : Continue gabapentin 600 mg 3 times daily Hamstring pain/knee pain: Consider reevaluation by physiatry Dr. Charles versus [facility] and[facility] and then after that physical therapy Will also put for home health OT PT to evaluate the house and consider assistive devices to help sit to stand Patient was encouraged to call the office [...] 40 minutes. The majority of the actual [id number] visit was spent counseling the patient with respect to the current neurological picture. MD Terry Archibald MD documented in this encounter Plan of Treatment Upcoming Encounters Date Type Department Care Team (Late st Contact Info) Description 06/16/2024 8:30 AM EDT Office Visit [facility] [address] [place] [address] Eda Bonds, MARY [address] [facility] [place] [address] Scheduled Referrals Name Type Priority Associated Diagnoses Order Schedule Ambulatory referral to Home Health Outpatient Referral Routine Multiple sclerosis (CMS/HCC) Spasticity Gait abnormality 1 Occurrences starting 05/10/2024 until 05/10/2025 Ambulatory referral to Physical Medicine Rehab Outpatient Referral Routine Multiple sclerosis (CMS/HCC) Spasticity Gait abnormality 1 Occurrences starting 05/10/2024 until 05/10/2025 documented as of this encounter Visit Diagnoses Diagnosis Multiple sclerosis (CMS/HCC)- Primary Multiple sclerosis Spasticity Abnormal involuntary movements Gait abnormality Abnormality of gait documented in this encounter Discontinued Medications Medication Sig Discontinue Reason Start Date End Da te methocarbamoL (ROBAXIN) 750 mg tablet Take 1 tablet (750 mg total) by mouth 4 (four) times a day for 10 days. Therapy completed 05/05/2024 05/10/2024 documented as of this encounter Historical Medications * This list may reflect changes made after this encounter. metoprolol succinate (TOPROL-XL) 25 mg 24 hr tablet Take 1 tablet (25 mg total) by mouth 1 (one) time each day. 05/05/2024 cyclobenzaprine (FLEXERIL) 10 mg tablet Take 1 tablet (10 mg total) by mouth. for 10 days 05/05/2024 added in this encounter Care Teams Manager Equity Relationship Specialty Start Date End Date Jonny Dejesus MD [address] [place] [address] PCP - General Internal Medicine 03/29/24 documented as of this encounter
--- OUTSIDE RECORDS SUMMARY | 2024-06-03 12:53 | XMS_ITS | Encounter Summary ---
Author Organization [facility] Address [address] [place] [address] Care Team Providers Care Hospice Music Therapist Name Role Phone Jonny Dejesus MD Primary Care Provider [phone] Encounter Details Date Type Department Care Team (Late st Contact Info) Description 12/21/2023 8:28 AM EDT Hospital Encounter TH HISTORIC ENCOUNTERS EASTERN CONVERSION ONLY Eda Bonds PA [address] [place] [address] [place] [address] Social History Tobacco Use Types Packs/Day Years [...] in this encounter Progress Notes * MARY aB - 12/21/2023 8:30 AM EDT Follow [facility]IPLE [facility] CC: MS HPI: Patient [...] early March. Bladder/bowel dysfunction: Continue care with [facility] Neuropathic pain : Continue gabapentin [...] 40 minutes. The majority of the actual [id number]-[id number] visit was spent counseling the patient with respect to the current neurological picture. Eda Bonds PA-C documented in this encounter Plan of Treatment Upcoming Encounters Date Type Department Care Team (Late st Contact Info) Description 06/16/2024 8:30 AM EDT Office Visit [facility] [address] [place] [address] Eda Bonds PA [address] [place] [address] [place] [address] documented as of this encounter Visit Diagnoses Not on filedocumented in this encounter Care Teams Hospice Music Therapist Relationship Specialty Start Date End Date Jonny Dejesus MD PCP - General Internal Medicine 07/23/17 03/28/24 documented as of this encounter
--- OUTSIDE RECORDS SUMMARY | 2024-06-03 12:53 | XMS_ITS | Clinical Summary ---
Author Organization [facility] Address [address] [place] [address] Care Team Providers Care Cross Cut Saw Operator Name Role Phone Jonny Olivera MD Primary Care Provider [phone] Allergies No known active allergies Medications Medication [...] age to complete this topic Care Teams Cross Cut Saw Operator Relationship Specialty Start Date End Date Jonny Olivera MD [address] [place] [address] [place] [address] PCP - General Canned Food Reconditioning Inspector 08/18/19
== END 2024-06-03 10:42 | disposition home or self-care (01) ==
LOC: HO.HAP 10:41
PROVIDERS: Visit Provider Internal Medicine
DX: Z46.1 Encounter for fitting and adjustment of hearing aid (principal); H90.3 Sensorineural hearing loss, bilateral
CPT/HCPCS: 92593; V5299